=== PATIENT | female | born 1950 | race Caucasian/White ===

== ENCOUNTER → 2018-02-02 | Day surgery (SDC) | payer MEDICARE, BC ==
[~2018-02-02] VITALS: Ht 157.5 cm; Wt 154.6 kg
[~2018-02-02] MED LIST: ASPI-630 PO; BUPIVAC MPF-EPI 0.5%-1:200000 30 ML VIAL. INJ ONE; BUPIVACAINE MPF 0.25% 30 ML VIAL. INJ ONE; CALC-112 PO; CHOL2000 PO; CRESTOR40 MG PO; DESFLURANE 31 TO 60 MINUTES IH ONE; DEXAMETHASONE SOD PHOS 20 MG/5 ML VIAL. ONE; GLYCOPYRROLATE 1 MG/5 ML VIAL. ONE; HYDROcodone/APAP 5/325MG 1 TAB TABLET ONE; HYDROmorphone 2 MG/ML VIAL IV PRN; IOHEXOL 300 MG/ML 100ML VIAL. ONE; IV RINGERS,LACTATED 1000ML 1,000 ML IV SCH; LEVO200T5 PO; LEVO75TA5 PO; LIDOCAINE 1% PF 2 ML VIAL. ID PRN; MEMA1CAP3 PO; MORPHINE SULFATE 2 MG/ML VIAL. ONE; MULT-650 PO; NEOSTIGMINE METHYLSULFATE 5 MG/5 ML SYRINGE. ONE; ONDANSETRON PF 4 MG/2 ML VIAL. IV PRN; ONDANSETRON PF 4 MG/2 ML VIAL. ONE; OXYB5TAB7 PO; OXYC-323 PO; PHENYLEPHRINE in 0.9% NACL PF 1 MG/10 ML SYRINGE. IV ONE; PROCHLORPERAZINE 10 MG/2 ML VIAL. IV PRN; PROPOFOL 20 ML IV ONE; ROCURONIUM 50 MG/5 ML VIAL. ONE; SIMV40TA3 PO; SURGICEL HEMOSTAT 4X8 EACH. TP ONE; fentaNYL PF VIAL 100 MCG/2 ML VIAL IV PRN; fentaNYL PF VIAL 100 MCG/2 ML VIAL ONE; oxyCODONE/APAP 5/325 1 TAB TABLET PO PRN
--- NOTE | 2018-02-02 10:40 | PDOC4 ---
Operative Note Operative Note Date: 02/02/2018 Preoperative diagnosis biliary dyskinesia Postoperative diagnosis: Same Procedure: Laparoscopic cholecystectomy Surgeon: Arnaud Specimen: Gallbladder Dictation: Patient is a 67-year-old female is had right upper quadrant abdominal pain nausea especially postprandial and a HIDA scan which showed ejection fraction of only 6%. The procedure of laparoscopic cholecystectomy was explained to the patient detail was benefits were also discussed including bleeding infection injury to intra-abdominal contents possibly necessitating further or open operations. Patient seemed understanding gave both verbal and written consent had procedure performed. Patient was taken to the operating room placed the supine position general anesthesia was initiated once patient was asleep and intubated her abdomen was prepped and draped usual sterile fashion using ChloraPrep. An area just below her umbilicus was injected with quarter percent Marcaine with epinephrine incisions made lead blade scalpel and a varies needle was placed within the abdomen creating pneumoperitoneum once this complete a 11 mm port was placed and a 5 mm camera was placed within the abdomen which was inspected no other at maladies were noted. A 5 mm port was placed in the epigastric area a second 5 mm port in the right lateral abdomen and one in the right mid abdomen the dome of the gallbladder was grasped retracted cephalad the infundibulum of the gallbladder's grasped retracted laterally exposing the triangle adherent tissues the triangle are taken down with blunt dissection exposing the cystic duct and cystic artery. Both the artery and duct were doubly clipped and transected the gallbladder was taken off the liver with hook left cautery placed in Endo Catch bag and removed from the umbilicus right upper quadrant was irrigated and suctioned dry hemostasis didn't be appropriate and the pneumoperitoneum was reduced all ports removed fascial defect at the umbilicus was closed with [id number] 0 Vicryl suture and skin was approximated all port sites 4 septic or Monocryl Mastisol Steri- Strips and Band-Aids were applied as dressings. Patient was waken next made in the operating room taken recovery in stable condition all sponge instrument needle counts listed as correct estimated blood loss 5 mL. ANDRIA ROQUE MD Feb 02, 2018 10:40
--- NOTE | 2018-02-02 10:40 | DISCH ---
DISCHARGE INSTRUCTIONS Condition on Discharge Condition on Discharge: Stable Activity After Discharge Activity Instructions for Disc: Avoid exertion Other activity instructions: no lifting more than 20 pounds for 2 weeks Diet after Discharge Diet after Discharge: Low Fat Wound Incision Care Other wound/incision instructi: May shower in 24 hours Contacting the after DC Call your doctor for: If your condition worsens Follow-Up Follow up with: Dr. Roque in 2 weeks ANDRIA ROQUE MD Feb 02, 2018 10:40
[2018-02-02] MEDS: fentaNYL PF VIAL 100 MCG/2 ML VIAL IV PRN ×2 (10:51→10:59)
[2018-02-02] MEDS: MORPHINE SULFATE 2 MG/ML VIAL. IV PRN ×2 (11:11→11:21)
[2018-02-02 12:28] VITALS: BP 155/81
--- NOTE | 2018-02-05 16:07 | PATHOLOGY ---
[facility] Accession Number: [id number] . 01 Material submitted: . GALLBLADDER . 01 Clinician provided ICD-10: K82.8 . 01 Clinical history: . Biliary dyskinesia . 02 Diagnosis: Gallbladder, laparoscopic cholecystectomy: - Chronic cholecystitis. . (JPM:farshad; 02/05/2018) MBR/02/05/2018 . 02 Comment: There are no calculi identified within the gallbladder lumen or specimen container. Sections of the gallbladder show mild chronic inflammation. There is no evidence of malignancy. . (JPM:farshad; 02/05/2018) . 02 Electronically signed: . Blair Chacon MD, Pathologist NPI- [id number] . 01 Gross description: . Received in formalin labeled "Oliva Bob, gallbladder" is a glistening, green, pink, renetta and intact gallbladder (7.0 x 3.2 x 3.0 cm). The lumen contains 5 ML's of green bile. No calculi are present. The wall averages 0.2 cm thick. The mucosa is green, slightly brown, and velvety. Bi Technical Lead sections are submitted as A1. (ROSE MARY; 02/02/2018) JBR/JBR . 02 Pathologist provided ICD-10: K81.1 . 02 CPT . 332119 Specimen Comment: A courtesy copy of this report has been sent to Specimen Comment: [phone], . Specimen Comment: Report sent to and Specimen Comment: A duplicate report has been generated due to demographic updates. Performed at: 01 [facility] [address], [place], [place] [id number] MD Konrad Griffin MD Phone: [phone] Performed at: [address] [id number] MD Blair Chacon MD Phone: [phone]
== END | disposition home or self-care (01) ==
LOC: SURG 08:06
PROVIDERS: ATTEND Surgery
DX: K81.1 Chronic cholecystitis (principal); E03.9 Hypothyroidism, unspecified; E78.5 Hyperlipidemia, unspecified; F32.9 Major depressive disorder, single episode, unspecified; Z87.442 Personal history of urinary calculi; E78.1 Pure hyperglyceridemia; Z87.440 Personal history of urinary (tract) infections; H91.90 Unspecified hearing loss, unspecified ear; Z87.891 Personal history of nicotine dependence; Z90.49 Acquired absence of other specified parts of digestive tract; Z98.890 Other specified postprocedural states; Z98.51 Tubal ligation status; Z80.1 Family history of malignant neoplasm of trachea, bronchus and lung; Z80.3 Family history of malignant neoplasm of breast; Z79.899 Other long term (current) drug therapy
CPT/HCPCS: 47562; 88304; A7015; J0690; J1100; J2270; J2370; J2405; J2704; J2710; J3010; J3490; J7030; Q9967

== ENCOUNTER → 2018-10-18 | Day surgery (SDC) | payer MEDICARE, BC ==
[~2018-10-18] MED LIST changes: -BUPIVAC MPF-EPI 0.5%-1:200000 30 ML VIAL. INJ ONE; -BUPIVACAINE MPF 0.25% 30 ML VIAL. INJ ONE; -DESFLURANE 31 TO 60 MINUTES IH ONE; -DEXAMETHASONE SOD PHOS 20 MG/5 ML VIAL. ONE; -GLYCOPYRROLATE 1 MG/5 ML VIAL. ONE; -HYDROcodone/APAP 5/325MG 1 TAB TABLET ONE; -HYDROmorphone 2 MG/ML VIAL IV PRN; -IOHEXOL 300 MG/ML 100ML VIAL. ONE; -LIDOCAINE 1% PF 2 ML VIAL. ID PRN; +LIDOCAINE 2% PF 5 ML VIAL. ONE; -MORPHINE SULFATE 2 MG/ML VIAL. ONE; -NEOSTIGMINE METHYLSULFATE 5 MG/5 ML SYRINGE. ONE; -ONDANSETRON PF 4 MG/2 ML VIAL. IV PRN; -ONDANSETRON PF 4 MG/2 ML VIAL. ONE; -OXYC-323 PO; +OXYC1TAB15 PO; -PHENYLEPHRINE in 0.9% NACL PF 1 MG/10 ML SYRINGE. IV ONE; -PROCHLORPERAZINE 10 MG/2 ML VIAL. IV PRN; -PROPOFOL 20 ML IV ONE; +PROPOFOL 40 ML IV ONE; -ROCURONIUM 50 MG/5 ML VIAL. ONE; -SURGICEL HEMOSTAT 4X8 EACH. TP ONE; -fentaNYL PF VIAL 100 MCG/2 ML VIAL IV PRN; -fentaNYL PF VIAL 100 MCG/2 ML VIAL ONE; -oxyCODONE/APAP 5/325 1 TAB TABLET PO PRN
[2018-10-18 13:38] VITALS: BP 132/81
== END ==
LOC: SURG 11:11
PROVIDERS: ATTEND Internal Medicine Gastroenterology
DX: Z12.11 Encounter for screening for malignant neoplasm of colon (principal); K57.30 Diverticulosis of large intestine without perforation or abscess without bleeding; K64.0 First degree hemorrhoids; Z86.010 Personal history of colon polyps; Z79.82 Long term (current) use of aspirin
CPT/HCPCS: G0105; J2001; J2704; 45378

== ENCOUNTER 2019-04-22 15:28 | Inpatient (IN) | payer MEDICARE, BC ==
[2019-04-22] VITALS (8 sets, daily range): BP systolic 120–161; BP diastolic 71–95
[~2019-04-22] VITALS: Ht 167.6 cm; Wt 66.3 kg
[~2019-04-22 15:28] MED LIST changes: -IV RINGERS,LACTATED 1000ML 1,000 ML IV SCH; -LIDOCAINE 2% PF 5 ML VIAL. ONE; +OXYB5TAB10 PO; -OXYB5TAB7 PO; -PROPOFOL 40 ML IV ONE; +SIMV40TA18 PO; -SIMV40TA3 PO
--- NOTE | 2019-04-22 16:09 | PDOC ---
Provider Note Provider Note Patient seen and examined reported fall 2 days ago awake, alert, confused conversation, clear speech, follows simple commands, MEJIA CT with left subacute cerebral convexity SDH monitor in ICU with neuro checks repeat CT in AM MARY KATE DEGROOT MD Apr 22, 2019 16:08
[2019-04-22] MEDS ORDERED: DIVA-53 PO (16:49)
[2019-04-22] MEDS ORDERED: ASPI-630 PO (16:49)
[2019-04-22] MEDS ORDERED: OLAN5TAB9 PO (16:49)
[2019-04-22] MEDS ORDERED: MIRT7.5T8 PO (16:49)
[2019-04-22] MEDS ORDERED: LEVO75TA5 PO (16:49)
[2019-04-22] MEDS ORDERED: ROSU10TA26 PO (16:49)
[2019-04-22] MEDS ORDERED: MULT-245 PO (16:49)
[2019-04-22] MEDS ORDERED: CHOL200027 PO (16:49)
[2019-04-22] MEDS: DIVALPROEX SPRINKLES 125 MG CAPSULE. PO SCH (17:58)
[2019-04-22] MEDS: IV NORMAL SALINE 1000ML BAG 1,000 ML IV SCH (18:45)
[2019-04-22] MEDS: OLANZapine 5 MG TABLET PO PRN (19:58)
[2019-04-22] MEDS: MIRTAZAPINE 7.5 MG TABLET. PO SCH (19:58)
[2019-04-22] MEDS: ATORVASTATIN CALCIUM 40 MG TABLET. PO SCH (19:58)
--- NOTE | 2019-04-22 21:53 | PDOC1 ---
History and Physical Date of Admission Date of Admission DATE: 04/22/19 TIME: 21:46 Identification/Chief Complaint Chief Complaint confusion, lethargy Source Source: Chart review, Patient History of Present Illness History of Present Illness Ms. Bob, was recently DC from [employer] at [facility] < 2 weeks ago, She was brought by her to the Emergency Room for lethargy and weakness and change in behavior he thought consistent with a UTI she has had falls at the house. 2 days ago, she sleeps on the cough and he was awakened to a very large noise of her falling to the floor. she was stunned but did not lose consciousness, but her behavior has worsened in the past 24 hours. She has history of dementia and has been increasingly combative and harder to control. no oriented,but does speak in full sentences SOCIAL HISTORY: She is , has 2 daughters. She quit smoking about 10 years ago. She drinks a glass of wine once a week. 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 Past Surgical History Past Surgical History: Appendectomy Family History Family History ALLERGIES: She is allergic to SULFA DRUGS. She is the only child, has no brothers or sisters. Both parents are , unknownm Social History Smoke: No ALCOHOL: none Drugs: None Current Medications Current Medications Current Medications Aspirin (Children'S Aspirin) 81 mg DAILY PO ; Start 04/23/19 at 09:00 Divalproex Sodium (Depakote Sprinkles) 125 mg BIDWMEALS PO Last administered on 04/22/19at 17:58; Start 04/22/19 at 17:30 Levothyroxine Sodium (Synthroid) 75 mcg DAILY PO ; Start 04/23/19 at 09:00 Mirtazapine (Remeron) 7.5 mg QHS PO Last administered on 04/22/19at 19:58; Start 04/22/19 at 21:00 Olanzapine (ZyPREXA) 5 mg PRN Q2HR PRN PO ANXIETY / AGITATION Last administered on 04/22/19at 19:58; Start 04/22/19 at 17:15 Calcium/Vitamin D (Oscal D 500mg/ 200uts) 1 tab DAILY PO ; Start 04/23/19 at 09:00 Vitamin D (Vitamin D3) 1,000 unit DAILY PO ; Start 04/23/19 at 09:00 Multivitamins (Thera M Plus) 1 tab DAILY PO ; Start 04/23/19 at 09:00 Atorvastatin Calcium (Lipitor) 40 mg QHS PO Last administered on 04/22/19at 19:58; Start 04/22/19 at 21:00 Sodium Chloride 1,000 ml @ 50 mls/hr Q20H IV Last administered on 04/22/19at 18:45; Start 04/22/19 at 19:00 Active Scripts Active Reported Mirtazapine 7.5 Mg Tablet 1 Tab PO QHS 30 Days Divalproex Sodium 500 Mg Tablet.dr 125 Mg PO BIDWMEALS Olanzapine 5 Mg Tablet 1 Tab PO PRN Q2HR PRN Levothyroxine Sodium 75 Mcg Tablet 1 Tab PO DAILY Aspirin 81 Mg Tab.chew 1 Tab PO DAILY Rosuvastatin Calcium 10 Mg Tablet 10 Mg PO HS Vitamin D3 (Cholecalciferol (Vitamin D3)) 2,000 Unit Tablet 1 Tab PO DAILY 30 Days Citracal + D Er Tablet (Calcium Carb & Cit/Vitamin D3) 1 Each Tablet.er 1 Each PO DAILY Centrum Silver Women Tablet (Multivits-Min/Iron/FA/Lutein) 1 Each Tablet 1 Each PO DAILY Allergies Allergies: Coded Allergies: No Known Drug Allergies (Unverified , 10/18/18) ROS Review of System unable due to dementia and new confusion Physical Exam General: Cooperative, mild distress, Other HEENT: Atraumatic, PERRLA, EOMI Lungs: Clear to auscultation Heart: S1S2 Abdomen: Normal bowel sounds, Soft Rectal Exam: not examined Extremities: No clubbing, No cyanosis Skin: No breakdown Neuro: Normal speech, Sensation intact, Other Psych/Mental Status: Other (confused, not oriented) Vitals Vitals Vital Signs Date Time Temp Pulse Resp B/P (MAP) Pulse Ox O2 Delivery O2 Flow Rate FiO2 04/22/19 20:09 97.6 65 19 158/95 (116) 96 Room Air 97.6 VTE Prophylaxis Ordered VTE Prophylaxis Devices: Yes VTE Pharmacological Prophylaxi: Contraindicated Assessment/Plan Assessment/Plan acute encephalopathy on chronic dementia CT scan head consistent with SDH, but may be old finding, Neurosurg consulted, will follow, admitted to ICU, neuro check dementia with marked behavioral disorder, req 2 week hospital stay recently/ cont home meds, DARLIN HERNANDEZ MD Apr 22, 2019 21:53
[2019-04-23] VITALS (23 sets, daily range): BP systolic 101–147; BP diastolic 60–105
[2019-04-23 06:42] LABS: BASO # 0.1 x10^3/uL (0.0-0.2); BASO % 1 % (0-3); EOS # 0.1 x10^3/uL (0.0-0.7); EOS % 2 % (0-3); HEMATOCRIT 43.1 % (36.0-47.0); HEMOGLOBIN 14.4 g/dL (12.0-15.5); LYMPH # 2.6 x10^3/uL (1.0-4.8); LYMPH % 32 % (24-48); MEAN CORPUSCULAR HEMOGLOBIN 30 pg (25-35); MEAN CORPUSCULAR HGB CONC 33 g/dL (31-37); MEAN CORPUSCULAR VOLUME 89 fL (79-100); MONO # 0.8 x10^3/uL (0.0-1.1); MONO % 10 % (0-9); NEUT # 4.3 x10^3/uL (1.8-7.7); NEUT % 55 % (31-73); PLATELET COUNT 226 x10^3/uL (140-400); RED BLOOD COUNT 4.85 x10^6/uL (3.50-5.40); RED CELL DISTRIBUTION WIDTH 14.3 % (11.5-14.5); WHITE BLOOD COUNT 7.9 x10^3/uL (4.0-11.0)
[2019-04-23 06:59] LABS: GFR 83.5
[2019-04-23] MEDS ORDERED: LEVOTHYROXINE 75 MCG TABLET ONE (07:16)
[2019-04-23] MEDS: LEVOTHYROXINE 75 MCG TABLET PO SCH (07:19)
[2019-04-23 07:35] LABS: CALCIUM 9.3 mg/dL (8.5-10.1); CREATININE 0.7 mg/dL (0.6-1.0); POTASSIUM 3.8 mmol/L (3.5-5.1)
[2019-04-23] MEDS ORDERED: ASPIRIN CHEWABLE 81 MG TABLET. PO SCH (09:00)
--- NOTE | 2019-04-23 09:12 | RAD ---
CT HEAD WO CONTRAST History: Follow-up subdural hematomas. Comparison: April 22, 2019. Technique: Noncontrast CT imaging was performed of the head. Coronal reconstruction was performed. Exposure: One or more of the following individualized dose reduction techniques were utilized for this examination: 1. Automated exposure control 2. Adjustment of the mA and/or kV according to patient size 3. Use of iterative reconstruction technique. Findings: Evolving left superior frontal convexity subdural hematoma. Mildly increased overall size compared to prior maximal thickness 3.6 cm. Slightly increased rightward midline shift. Partial effacement of the left lateral ventricle, unchanged. No new hemorrhage. No hydrocephalus. Mild brain parenchymal volume loss. Mild foci decreased attenuation within hemispheric white matter, most often due to chronic microvascular ischemia. Imaged orbits are unremarkable. Imaged paranasal sinuses and mastoid air cells are clear. TMJ arthropathy. Impression: 1. Evolving mildly increased left frontal convexity subdural hematoma with adjacent mass effect and rightward midline shift. Electronically signed by: Serafin Hernandez DO (04/23/2019 9:09 AM) [id number]
--- NOTE | 2019-04-23 09:13 | PDOC ---
PROGRESS NOTES Chief Complaint Chief Complaint Acute encephalopathy on chronic dementia CT scan head consistent with SDH on left 2.4cm with 4mm right midline shift, but may be old finding, Neurosurg consulted, will follow, admitted to ICU, neuro check Dementia with marked behavioral disorder - Cymbalta 60 mg at bedtime, Depakote Sprinkle 125 mg b.i.d., Remeron 7.5 mg QHS, Aricept 10 mg at bedtime, Namenda 10 mg at bedtime - would hold aricept given hemorrhage and falls UTI, treated, on doxycycline until 04/15/2019 History of Present Illness History of Present Illness Ms. Bob, was recently DC from [employer] at [place] < 2 weeks ago, She was brought by her to the Emergency Room for lethargy and weakness and change in behavior he thought consistent with a UTI. She has had falls at the house. 2 days ago, she sleeps on the cough and he was awakened to a very large noise of her falling to the floor. Behavior had worsened in the past 24 hours prior to admission on 04/22/19. CT head in ED showed 2.4cm SDH with 4mm right midline shift. Admitted to ICU for further care. She has history of dementia and has been increasingly combative and harder to control. Not oriented,but does speak in full sentences. She has no complaints. Plan: Repeat CT head Downgrade Vitals Vitals Vital Signs Date Time Temp Pulse Resp B/P (MAP) Pulse Ox O2 Delivery O2 Flow Rate FiO2 04/23/19 07:23 Room Air 04/23/19 07:23 98.2 70 17 147/60 (89) 98 98.2 Physical Exam General: Cooperative, mild distress, Other (Oriented to herself. Insight, judgment, recent and remote memory, attention, concentration, fund of knowledge poor, consistent with her diagnosis.) Abdomen: Normal bowel sounds, Soft Extremities: No clubbing, No cyanosis Skin: No breakdown Labs LABS Laboratory Tests Test 04/23/19 06:30 White Blood Count 7.9 x10^3/uL (4.0-11.0) Red Blood Count 4.85 x10^6/uL (3.50-5.40) Hemoglobin 14.4 g/dL (12.0-15.5) Hematocrit 43.1 % (36.0-47.0) Mean Corpuscular Volume 89 fL (79-100) Mean Corpuscular Hemoglobin 30 pg (25-35) Mean Corpuscular Hemoglobin Concent 33 g/dL (31-37) Red Cell Distribution Width 14.3 % (11.5-14.5) Platelet Count 226 x10^3/uL (140-400) Neutrophils (%) (Auto) 55 % (31-73) Lymphocytes (%) (Auto) 32 % (24-48) Monocytes (%) (Auto) 10 % (0-9) Eosinophils (%) (Auto) 2 % (0-3) Basophils (%) (Auto) 1 % (0-3) Neutrophils # (Auto) 4.3 x10^3/uL (1.8-7.7) Lymphocytes # (Auto) 2.6 x10^3/uL (1.0-4.8) Monocytes # (Auto) 0.8 x10^3/uL (0.0-1.1) Eosinophils # (Auto) 0.1 x10^3/uL (0.0-0.7) Basophils # (Auto) 0.1 x10^3/uL (0.0-0.2) Sodium Level 144 mmol/L (136-145) Potassium Level 3.8 mmol/L (3.5-5.1) Chloride Level 109 mmol/L (98-107) Carbon Dioxide Level 22 mmol/L (21-32) Anion Gap 13 (6-14) Blood Urea Nitrogen 4 mg/dL (7-20) Creatinine 0.7 mg/dL (0.6-1.0) Estimated GFR (Cockcroft-Gault) 83.5 Glucose Level 99 mg/dL (70-99) Calcium Level 9.3 mg/dL (8.5-10.1) Comment Review of Relevant I have reviewed the following items cyndi (where applicable) has been applied. Labs Laboratory Tests Test 04/23/19 06:30 White Blood Count 7.9 x10^3/uL (4.0-11.0) Red Blood Count 4.85 x10^6/uL (3.50-5.40) Hemoglobin 14.4 g/dL (12.0-15.5) Hematocrit 43.1 % (36.0-47.0) Mean Corpuscular Volume 89 fL (79-100) Mean Corpuscular Hemoglobin 30 pg (25-35) Mean Corpuscular Hemoglobin Concent 33 g/dL (31-37) Red Cell Distribution Width 14.3 % (11.5-14.5) Platelet Count 226 x10^3/uL (140-400) Neutrophils (%) (Auto) 55 % (31-73) Lymphocytes (%) (Auto) 32 % (24-48) Monocytes (%) (Auto) 10 % (0-9) Eosinophils (%) (Auto) 2 % (0-3) Basophils (%) (Auto) 1 % (0-3) Neutrophils # (Auto) 4.3 x10^3/uL (1.8-7.7) Lymphocytes # (Auto) 2.6 x10^3/uL (1.0-4.8) Monocytes # (Auto) 0.8 x10^3/uL (0.0-1.1) Eosinophils # (Auto) 0.1 x10^3/uL (0.0-0.7) Basophils # (Auto) 0.1 x10^3/uL (0.0-0.2) Sodium Level 144 mmol/L (136-145) Potassium Level 3.8 mmol/L (3.5-5.1) Chloride Level 109 mmol/L (98-107) Carbon Dioxide Level 22 mmol/L (21-32) Anion Gap 13 (6-14) Blood Urea Nitrogen 4 mg/dL (7-20) Creatinine 0.7 mg/dL (0.6-1.0) Estimated GFR (Cockcroft-Gault) 83.5 Glucose Level 99 mg/dL (70-99) Calcium Level 9.3 mg/dL (8.5-10.1) Laboratory Tests Test 04/23/19 06:30 White Blood Count 7.9 x10^3/uL (4.0-11.0) Red Blood Count 4.85 x10^6/uL (3.50-5.40) Hemoglobin 14.4 g/dL (12.0-15.5) Hematocrit 43.1 % (36.0-47.0) Mean Corpuscular Volume 89 fL (79-100) Mean Corpuscular Hemoglobin 30 pg (25-35) Mean Corpuscular Hemoglobin Concent 33 g/dL (31-37) Red Cell Distribution Width 14.3 % (11.5-14.5) Platelet Count 226 x10^3/uL (140-400) Neutrophils (%) (Auto) 55 % (31-73) Lymphocytes (%) (Auto) 32 % (24-48) Monocytes (%) (Auto) 10 % (0-9) Eosinophils (%) (Auto) 2 % (0-3) Basophils (%) (Auto) 1 % (0-3) Neutrophils # (Auto) 4.3 x10^3/uL (1.8-7.7) Lymphocytes # (Auto) 2.6 x10^3/uL (1.0-4.8) Monocytes # (Auto) 0.8 x10^3/uL (0.0-1.1) Eosinophils # (Auto) 0.1 x10^3/uL (0.0-0.7) Basophils # (Auto) 0.1 x10^3/uL (0.0-0.2) Sodium Level 144 mmol/L (136-145) Potassium Level 3.8 mmol/L (3.5-5.1) Chloride Level 109 mmol/L (98-107) Carbon Dioxide Level 22 mmol/L (21-32) Anion Gap 13 (6-14) Blood Urea Nitrogen 4 mg/dL (7-20) Creatinine 0.7 mg/dL (0.6-1.0) Estimated GFR (Cockcroft-Gault) 83.5 Glucose Level 99 mg/dL (70-99) Calcium Level 9.3 mg/dL (8.5-10.1) Medications Current Medications Aspirin (Children'S Aspirin) 81 mg DAILY PO ; Start 04/23/19 at 09:00 Divalproex Sodium (Depakote Sprinkles) 125 mg BIDWMEALS PO Last administered on 04/22/19at 17:58; Start 04/22/19 at 17:30 Levothyroxine Sodium (Synthroid) 75 mcg DAILY PO Last administered on 04/23/19at 07:19; Start 04/23/19 at 09:00 Mirtazapine (Remeron) 7.5 mg QHS PO Last administered on 04/22/19at 19:58; Start 04/22/19 at 21:00 Olanzapine (ZyPREXA) 5 mg PRN Q2HR PRN PO ANXIETY / AGITATION Last administered on 04/22/19at 19:58; Start 04/22/19 at 17:15 Calcium/Vitamin D (Oscal D 500mg/ 200uts) 1 tab DAILY PO ; Start 04/23/19 at 09:00 Vitamin D (Vitamin D3) 1,000 unit DAILY PO ; Start 04/23/19 at 09:00 Multivitamins (Thera M Plus) 1 tab DAILY PO ; Start 04/23/19 at 09:00 Atorvastatin Calcium (Lipitor) 40 mg QHS PO Last administered on 04/22/19at 19:58; Start 04/22/19 at 21:00 Sodium Chloride 1,000 ml @ 50 mls/hr Q20H IV Last administered on 04/22/19at 18:45; Start 04/22/19 at 19:00 Vitamin B Complex (Folbic Tablet) 1 tab DAILY PO ; Start 04/23/19 at 09:00 Levothyroxine Sodium (Synthroid) 75 mcg STK-MED ONCE .ROUTE ; Start 04/23/19 at 07:16; Stop 04/23/19 at 07:17; Status DC Active Scripts Active Reported Mirtazapine 7.5 Mg Tablet 1 Tab PO QHS 30 Days Divalproex Sodium 500 Mg Tablet.dr 125 Mg PO BIDWMEALS Olanzapine 5 Mg Tablet 1 Tab PO PRN Q2HR PRN Levothyroxine Sodium 75 Mcg Tablet 1 Tab PO DAILY Aspirin 81 Mg Tab.chew 1 Tab PO DAILY Rosuvastatin Calcium 10 Mg Tablet 10 Mg PO HS Vitamin D3 (Cholecalciferol (Vitamin D3)) 2,000 Unit Tablet 1 Tab PO DAILY 30 Days Citracal + D Er Tablet (Calcium Carb & Cit/Vitamin D3) 1 Each Tablet.er 1 Each PO DAILY Centrum Silver Women Tablet (Multivits-Min/Iron/FA/Lutein) 1 Each Tablet 1 Each PO DAILY Vitals/I & O Vital Sign - Last 24 Hours 04/22/19 04/22/19 04/22/19 04/22/19 15:56 16:11 17:20 18:06 Temp 98.2 98.3 98.3 98.2 98.3 98.3 Pulse 82 76 63 Resp 20 18 17 B/P (MAP) 140/91 (107) 140/73 (95) 138/78 (98) Pulse Ox 92 95 96 O2 Delivery Room Air Room Air Room Air Nasal Cannula 04/22/19 04/22/19 04/22/19 04/22/19 19:00 19:43 20:09 21:00 Temp 97.4 97.6 97.6 97.4 97.6 97.6 Pulse 68 65 72 Resp 18 B/P (MAP) 155/87 (109) 158/95 (116) 161/95 (117) Pulse Ox 95 96 96 O2 Delivery Room Air Room Air Room Air Room Air 04/22/19 04/22/19 04/22/19 04/23/19 22:16 23:10 23:53 01:10 Temp 97.0 97.4 97.0 97.0 97.4 97.0 Pulse 104 72 76 Resp 18 B/P (MAP) 143/94 (110) 120/71 (87) 126/67 (86) Pulse Ox 93 94 94 O2 Delivery Room Air Room Air Room Air Room Air 04/23/19 04/23/19 04/23/19 04/23/19 02:00 03:00 03:49 04:12 Temp 96.9 97.0 97.3 96.9 97.0 97.3 Pulse 70 69 98 Resp 22 B/P (MAP) 112/78 (89) 124/76 (92) 141/75 (97) Pulse Ox 95 96 96 O2 Delivery Room Air Room Air Room Air Room Air 04/23/19 04/23/19 04/23/19 04/23/19 05:13 06:08 07:23 07:23 Temp 97.5 97.0 98.2 97.5 97.0 98.2 Pulse 69 62 70 Resp 17 B/P (MAP) 105/71 (82) 145/70 (95) 147/60 (89) Pulse Ox 96 96 98 O2 Delivery Room Air Room Air Room Air Room Air Intake and Output 04/22/19 04/22/19 04/23/19 14:59 22:59 06:59 Intake Total 480 ml 600 ml Output Total 0 ml Balance 480 ml 600 ml LLOYD ANDERSON MD Apr 23, 2019 09:13
[2019-04-23] MEDS: VITAMIN B12,B9,B6 COMPLEX 1 TABLET. PO SCH (09:25)
[2019-04-23] MEDS: CALCIUM CARB/VIT D3 500/200 TABLET. PO SCH (09:25)
[2019-04-23] MEDS: CHOLECALCIFEROL (VITAMIN D3) 1,000 UNIT TABLET PO SCH (09:26)
[2019-04-23] MEDS: DIVALPROEX SPRINKLES 125 MG CAPSULE. PO SCH ×2 (09:26→16:32)
[2019-04-23] MEDS: MULTIVITAMIN with MINERAL TABLET. PO SCH (09:26)
--- NOTE | 2019-04-23 10:17 | NUR ---
SS following for discharge planning. SS reviewed pt chart. Pt is from home with spouse and is currently on room air. SS will continue to follow for discharge planning.
--- NOTE | 2019-04-23 13:21 | PDOC ---
PROGRESS NOTES Subjective Subjective Resting in bed family at bedside Objective Objective Vital Signs Date Time Temp Pulse Resp B/P (MAP) Pulse Ox O2 Delivery O2 Flow Rate FiO2 04/23/19 13:07 72 20 134/99 (111) 96 Room Air 04/23/19 11:20 98.1 98.1 Intake and Output 04/23/19 07:00 Intake Total 1080 ml Output Total 0 ml Balance 1080 ml Intake Oral 1080 ml Output Urine Total 0 ml # Voids 6 # Bowel Movements 1 Physical Exam General: Alert, No acute distress, Other (confused) Neuro: Other (MEJIA, follows some simple commands) Plan Plan of Care CT head reviewed with Dr. Gaspar- mildly increased left frontal convexity subdural hematoma with adjacent mass effect and rightward midline shift plan for evacuation tomorrow, d/w family, all questions answered Comment Review of Relevant I have reviewed the following items cyndi (where applicable) has been applied. Labs Laboratory Tests Test 04/23/19 06:30 White Blood Count 7.9 x10^3/uL (4.0-11.0) Red Blood Count 4.85 x10^6/uL (3.50-5.40) Hemoglobin 14.4 g/dL (12.0-15.5) Hematocrit 43.1 % (36.0-47.0) Mean Corpuscular Volume 89 fL (79-100) Mean Corpuscular Hemoglobin 30 pg (25-35) Mean Corpuscular Hemoglobin Concent 33 g/dL (31-37) Red Cell Distribution Width 14.3 % (11.5-14.5) Platelet Count 226 x10^3/uL (140-400) Neutrophils (%) (Auto) 55 % (31-73) Lymphocytes (%) (Auto) 32 % (24-48) Monocytes (%) (Auto) 10 % (0-9) Eosinophils (%) (Auto) 2 % (0-3) Basophils (%) (Auto) 1 % (0-3) Neutrophils # (Auto) 4.3 x10^3/uL (1.8-7.7) Lymphocytes # (Auto) 2.6 x10^3/uL (1.0-4.8) Monocytes # (Auto) 0.8 x10^3/uL (0.0-1.1) Eosinophils # (Auto) 0.1 x10^3/uL (0.0-0.7) Basophils # (Auto) 0.1 x10^3/uL (0.0-0.2) Sodium Level 144 mmol/L (136-145) Potassium Level 3.8 mmol/L (3.5-5.1) Chloride Level 109 mmol/L (98-107) Carbon Dioxide Level 22 mmol/L (21-32) Anion Gap 13 (6-14) Blood Urea Nitrogen 4 mg/dL (7-20) Creatinine 0.7 mg/dL (0.6-1.0) Estimated GFR (Cockcroft-Gault) 83.5 Glucose Level 99 mg/dL (70-99) Calcium Level 9.3 mg/dL (8.5-10.1) Laboratory Tests Test 04/23/19 06:30 White Blood Count 7.9 x10^3/uL (4.0-11.0) Red Blood Count 4.85 x10^6/uL (3.50-5.40) Hemoglobin 14.4 g/dL (12.0-15.5) Hematocrit 43.1 % (36.0-47.0) Mean Corpuscular Volume 89 fL (79-100) Mean Corpuscular Hemoglobin 30 pg (25-35) Mean Corpuscular Hemoglobin Concent 33 g/dL (31-37) Red Cell Distribution Width 14.3 % (11.5-14.5) Platelet Count 226 x10^3/uL (140-400) Neutrophils (%) (Auto) 55 % (31-73) Lymphocytes (%) (Auto) 32 % (24-48) Monocytes (%) (Auto) 10 % (0-9) Eosinophils (%) (Auto) 2 % (0-3) Basophils (%) (Auto) 1 % (0-3) Neutrophils # (Auto) 4.3 x10^3/uL (1.8-7.7) Lymphocytes # (Auto) 2.6 x10^3/uL (1.0-4.8) Monocytes # (Auto) 0.8 x10^3/uL (0.0-1.1) Eosinophils # (Auto) 0.1 x10^3/uL (0.0-0.7) Basophils # (Auto) 0.1 x10^3/uL (0.0-0.2) Sodium Level 144 mmol/L (136-145) Potassium Level 3.8 mmol/L (3.5-5.1) Chloride Level 109 mmol/L (98-107) Carbon Dioxide Level 22 mmol/L (21-32) Anion Gap 13 (6-14) Blood Urea Nitrogen 4 mg/dL (7-20) Creatinine 0.7 mg/dL (0.6-1.0) Estimated GFR (Cockcroft-Gault) 83.5 Glucose Level 99 mg/dL (70-99) Calcium Level 9.3 mg/dL (8.5-10.1) Medications Current Medications Aspirin (Children'S Aspirin) 81 mg DAILY PO Last administered on 04/23/19 09:25; Start 04/23/19 at 09:00 Divalproex Sodium (Depakote Sprinkles) 125 mg BIDWMEALS PO Last administered on 04/23/19 09:26; Start 04/22/19 at 17:30 Levothyroxine Sodium (Synthroid) 75 mcg DAILY PO Last administered on 04/23/19 07:19; Start 04/23/19 at 09:00 Mirtazapine (Remeron) 7.5 mg QHS PO Last administered on 04/22/19 19:58; Start 04/22/19 at 21:00 Olanzapine (ZyPREXA) 5 mg PRN Q2HR PRN PO ANXIETY / AGITATION Last administered on 04/22/19 19:58; Start 04/22/19 at 17:15 Calcium/Vitamin D (Oscal D 500mg/ 200uts) 1 tab DAILY PO Last administered on 04/23/19 09:25; Start 04/23/19 at 09:00 Vitamin D (Vitamin D3) 1,000 unit DAILY PO Last administered on 04/23/19 09:26; Start 04/23/19 at 09:00 Multivitamins (Thera M Plus) 1 tab DAILY PO Last administered on 04/23/19 09:26; Start 04/23/19 at 09:00 Atorvastatin Calcium (Lipitor) 40 mg QHS PO Last administered on 04/22/19 19:58; Start 04/22/19 at 21:00 Sodium Chloride 1,000 ml @ 50 mls/hr Q20H IV Last administered on 12/9/19at 18:45; Start 04/22/19 at 19:00 Vitamin B Complex (Folbic Tablet) 1 tab DAILY PO Last administered on 04/23/19at 09:25; Start 04/23/19 at 09:00 Levothyroxine Sodium (Synthroid) 75 mcg STK-MED ONCE .ROUTE ; Start 04/23/19 at 07:16; Stop 04/23/19 at 07:17; Status DC Active Scripts Active Reported Mirtazapine 7.5 Mg Tablet 1 Tab PO QHS 30 Days Divalproex Sodium 500 Mg Tablet.dr 125 Mg PO BIDWMEALS Olanzapine 5 Mg Tablet 1 Tab PO PRN Q2HR PRN Levothyroxine Sodium 75 Mcg Tablet 1 Tab PO DAILY Aspirin 81 Mg Tab.chew 1 Tab PO DAILY Rosuvastatin Calcium 10 Mg Tablet 10 Mg PO HS Vitamin D3 (Cholecalciferol (Vitamin D3)) 2,000 Unit Tablet 1 Tab PO DAILY 30 Days Citracal + D Er Tablet (Calcium Carb & Cit/Vitamin D3) 1 Each Tablet.er 1 Each PO DAILY Centrum Silver Women Tablet (Multivits-Min/Iron/FA/Lutein) 1 Each Tablet 1 Each PO DAILY Vitals/I & O Vital Sign - Last 24 Hours 04/22/19 04/22/19 04/22/19 04/22/19 15:56 16:11 17:20 18:06 Temp 98.2 98.3 98.3 98.2 98.3 98.3 Pulse 82 76 63 Resp 20 18 17 B/P (MAP) 140/91 (107) 140/73 (95) 138/78 (98) Pulse Ox 92 95 96 O2 Delivery Room Air Room Air Room Air Nasal Cannula 04/22/19 04/22/19 04/22/19 04/22/19 19:00 19:43 20:09 21:00 Temp 97.4 97.6 97.6 97.4 97.6 97.6 Pulse 68 65 72 Resp 19 19 18 B/P (MAP) 155/87 (109) 158/95 (116) 161/95 (117) Pulse Ox 95 96 96 O2 Delivery Room Air Room Air Room Air Room Air 04/22/19 04/22/19 04/22/19 04/23/19 22:16 23:10 23:53 01:10 Temp 97.0 97.4 97.0 97.0 97.4 97.0 Pulse 104 72 76 Resp 19 19 18 B/P (MAP) 143/94 (110) 120/71 (87) 126/67 (86) Pulse Ox 93 94 94 O2 Delivery Room Air Room Air Room Air Room Air 04/23/19 04/23/19 04/23/19 04/23/19 02:00 03:00 03:49 04:12 Temp 96.9 97.0 97.3 96.9 97.0 97.3 Pulse 70 69 98 Resp 18 22 22 B/P (MAP) 112/78 (89) 124/76 (92) 141/75 (97) Pulse Ox 95 96 96 O2 Delivery Room Air Room Air Room Air Room Air 04/23/19 04/23/19 04/23/19 04/23/19 05:13 06:08 07:23 07:23 Temp 97.5 97.0 98.2 97.5 97.0 98.2 Pulse 69 62 70 Resp 18 18 17 B/P (MAP) 105/71 (82) 145/70 (95) 147/60 (89) Pulse Ox 96 96 98 O2 Delivery Room Air Room Air Room Air Room Air 04/23/19 04/23/19 04/23/19 04/23/19 08:00 09:18 10:44 11:20 Temp 98.1 98.1 Pulse 82 77 76 73 Resp 18 22 20 21 B/P (MAP) 135/86 (102) 119/85 (96) 115/87 (96) 113/79 (90) Pulse Ox 95 94 93 95 O2 Delivery Room Air Room Air Room Air Room Air 04/23/19 04/23/19 04/23/19 12:12 12:14 13:07 Pulse 75 72 Resp 24 20 B/P (MAP) 105/67 (80) 134/99 (111) Pulse Ox 94 96 O2 Delivery Room Air Room Air Room Air Intake and Output 04/22/19 04/22/19 04/23/19 15:00 23:00 07:00 Intake Total 480 ml 600 ml Output Total 0 ml Balance 480 ml 600 ml Nutrition Consultation Dietary Evaluation: Recommendations by RD: Protein supplementation Comments: REC continue w/regular diet, add ground meats to ease w/chewing; honor food preferences and provide snacks as requested REC Ensure w/lunch trays Expected Outcomes/Goals: PO intake to meet >75% est needs Malnutrition Findings: Weight Status: Appropriate TASHI COUCH HOUSEFELLOW Apr 23, 2019 13:21
[2019-04-23] MEDS: OLANZapine 5 MG TABLET PO PRN ×4 (13:24→22:31)
[2019-04-23] MEDS: DEXAMETHASONE SOD PHOS 4 MG/ML VIAL IVP SCH ×3 (14:34→23:00)
[2019-04-23] MEDS: IV NORMAL SALINE 1000ML BAG 1,000 ML IV SCH (15:00)
[2019-04-23] MEDS: ATORVASTATIN CALCIUM 40 MG TABLET. PO SCH (19:31)
[2019-04-23] MEDS: MIRTAZAPINE 7.5 MG TABLET. PO SCH (20:06)
[2019-04-24] VITALS (26 sets, daily range): BP systolic 80–160; BP diastolic 47–84
[2019-04-24] MEDS: DEXAMETHASONE SOD PHOS 4 MG/ML VIAL IVP SCH ×3 (05:40→17:40)
[2019-04-24] MEDS ORDERED: BUPIVACAINE-EPI 0.5%-1:200000 MPF 30 ML VIAL. INJ ONE (06:30)
[2019-04-24] MEDS ORDERED: fentaNYL PF VIAL 100 MCG/2 ML VIAL IV PRN ×2 (07:00)
[2019-04-24] MEDS ORDERED: PROCHLORPERAZINE 10 MG/2 ML VIAL. IV PRN (07:00)
[2019-04-24] MEDS ORDERED: LIDOCAINE 1% PF 2 ML VIAL. ID PRN (07:00)
[2019-04-24] MEDS ORDERED: IV RINGERS,LACTATED 1000ML 1,000 ML IV SCH (07:00)
[2019-04-24] MEDS ORDERED: HYDROmorphone 2 MG/ML VIAL IV PRN ×2 (07:00→17:30)
[2019-04-24] MEDS ORDERED: MORPHINE SULFATE 2 MG/ML VIAL. IV PRN (07:00)
[2019-04-24] MEDS ORDERED: ONDANSETRON PF 4 MG/2 ML VIAL. IV PRN (07:00)
[2019-04-24] MEDS: DIVALPROEX SPRINKLES 125 MG CAPSULE. PO SCH ×2 (08:00→17:00)
--- NOTE | 2019-04-24 08:47 | PDOC ---
PROGRESS NOTES Chief Complaint Chief Complaint Acute encephalopathy on chronic dementia CT scan head consistent with SDH on left 2.4cm with 4mm right midline shift worsening, Neurosurg consulted, will follow, admitted to ICU, neuro checks -plans for evacuation 04/24/19 Dementia with marked behavioral disorder - Cymbalta 60 mg at bedtime, Depakote Sprinkle 125 mg b.i.d., Remeron 7.5 mg QHS, Aricept 10 mg at bedtime, Namenda 10 mg at bedtime - would hold aricept given hemorrhage and falls UTI, treated, on doxycycline until 04/15/2019 History of Present Illness History of Present Illness Ms. Bob, was recently DC from [facility] < 2 weeks ago, She was brought by her to the Emergency Room for lethargy and weakness and change in behavior he thought consistent with a UTI. She has had falls at the house. 2 days ago, she sleeps on the cough and he was awakened to a very large noise of her falling to the floor. Behavior had worsened in the past 24 hours prior to admission on 04/22/19. CT head in ED showed 2.4cm SDH with 4mm right midline shift. Admitted to ICU for further care. She has history of dementia and has been increasingly combative and harder to control. Not oriented,but does speak in full sentences. She has no complaints. Repeat CT shows evolving SDH, plans for surgical evacuation per neurosurgery. Patient has no complaints. Plan: Repeat CT head - 1. Evolving mildly increased left frontal convexity subdural hematoma with adjacent mass effect and rightward midline shift. Cont ICU Vitals Vitals Vital Signs Date Time Temp Pulse Resp B/P (MAP) Pulse Ox O2 Delivery O2 Flow Rate FiO2 04/24/19 06:23 97.0 76 19 112/64 (80) 93 Room Air 97.0 Physical Exam General: Alert, No acute distress, Other (confused) Abdomen: Normal bowel sounds, Soft Extremities: No clubbing, No cyanosis Skin: No breakdown Comment Review of Relevant I have reviewed the following items cyndi (where applicable) has been applied. Labs Laboratory Tests Test 04/23/19 06:30 White Blood Count 7.9 x10^3/uL (4.0-11.0) Red Blood Count 4.85 x10^6/uL (3.50-5.40) Hemoglobin 14.4 g/dL (12.0-15.5) Hematocrit 43.1 % (36.0-47.0) Mean Corpuscular Volume 89 fL (79-100) Mean Corpuscular Hemoglobin 30 pg (25-35) Mean Corpuscular Hemoglobin Concent 33 g/dL (31-37) Red Cell Distribution Width 14.3 % (11.5-14.5) Platelet Count 226 x10^3/uL (140-400) Neutrophils (%) (Auto) 55 % (31-73) Lymphocytes (%) (Auto) 32 % (24-48) Monocytes (%) (Auto) 10 % (0-9) Eosinophils (%) (Auto) 2 % (0-3) Basophils (%) (Auto) 1 % (0-3) Neutrophils # (Auto) 4.3 x10^3/uL (1.8-7.7) Lymphocytes # (Auto) 2.6 x10^3/uL (1.0-4.8) Monocytes # (Auto) 0.8 x10^3/uL (0.0-1.1) Eosinophils # (Auto) 0.1 x10^3/uL (0.0-0.7) Basophils # (Auto) 0.1 x10^3/uL (0.0-0.2) Sodium Level 144 mmol/L (136-145) Potassium Level 3.8 mmol/L (3.5-5.1) Chloride Level 109 mmol/L (98-107) Carbon Dioxide Level 22 mmol/L (21-32) Anion Gap 13 (6-14) Blood Urea Nitrogen 4 mg/dL (7-20) Creatinine 0.7 mg/dL (0.6-1.0) Estimated GFR (Cockcroft-Gault) 83.5 Glucose Level 99 mg/dL (70-99) Calcium Level 9.3 mg/dL (8.5-10.1) Medications Current Medications Aspirin (Children'S Aspirin) 81 mg DAILY PO Last administered on 04/23/19at 09:25; Start 04/23/19 at 09:00 Divalproex Sodium (Depakote Sprinkles) 125 mg BIDWMEALS PO Last administered on 04/23/19at 16:32; Start 04/22/19 at 17:30 Levothyroxine Sodium (Synthroid) 75 mcg DAILY PO Last administered on 04/23/19 07:19; Start 04/23/19 at 09:00 Mirtazapine (Remeron) 7.5 mg QHS PO Last administered on 04/23/19 20:06; Start 04/22/19 at 21:00 Olanzapine (ZyPREXA) 5 mg PRN Q2HR PRN PO ANXIETY / AGITATION Last administered on 04/23/19 22:31; Start 04/22/19 at 17:15 Calcium/Vitamin D (Oscal D 500mg/ 200uts) 1 tab DAILY PO Last administered on 04/23/19 09:25; Start 04/23/19 at 09:00 Vitamin D (Vitamin D3) 1,000 unit DAILY PO Last administered on 04/23/19 09:26; Start 04/23/19 at 09:00 Multivitamins (Thera M Plus) 1 tab DAILY PO Last administered on 04/23/19 09:26; Start 04/23/19 at 09:00 Atorvastatin Calcium (Lipitor) 40 mg QHS PO Last administered on 04/23/19 19:31; Start 04/22/19 at 21:00 Sodium Chloride 1,000 ml @ 50 mls/hr Q20H IV Last administered on 04/22/19 18:45; Start 04/22/19 at 19:00 Vitamin B Complex (Folbic Tablet) 1 tab DAILY PO Last administered on 04/23/19 09:25; Start 04/23/19 at 09:00 Levothyroxine Sodium (Synthroid) 75 mcg STK-MED ONCE .ROUTE ; Start 04/23/19 at 07:16; Stop 04/23/19 at 07:17; Status DC Dexamethasone Sodium Phosphate (Decadron) 2 mg Q6HRS IVP Last administered on 04/24/19at 05:40; Start 04/23/19 at 14:00 Cefazolin Sodium/ Dextrose 50 ml @ 100 mls/hr 1X PREOP IV ; Start 04/24/19 at 11:00; Stop 04/24/19 at 18:00 Bacitracin 52171 unit/Sodium Chloride 1,000 ml @ 1,000 mls/hr 1X ONCE IRR ; Start 04/24/19 at 06:00; Stop 04/24/19 at 06:59; Status DC Bupivacaine HCl/ Epinephrine Bitart (Sensorcain-Epi 0.5%-1:197174 Mpf) 30 ml 1X ONCE INJ ; Start 04/24/19 at 06:30; Stop 04/24/19 at 06:31; Status DC Ondansetron HCl (Zofran) 4 mg PRN Q6HRS PRN IV NAUSEA/VOMITING; Start 04/24/19 at 07:00; Stop 04/25/19 at 06:59 Fentanyl Citrate (Fentanyl 2ml Vial) 25 mcg PRN Q5MIN PRN IV MILD PAIN 1-3; Start 04/24/19 at 07:00; Stop 04/25/19 at 06:59 Fentanyl Citrate (Fentanyl 2ml Vial) 50 mcg PRN Q5MIN PRN IV MODERATE TO SEVERE PAIN; Start 04/24/19 at 07:00; Stop 04/25/19 at 06:59 Morphine Sulfate (Morphine Sulfate) 1 mg PRN Q10MIN PRN IV SEVERE PAIN 7-10; Start 04/24/19 at 07:00; Stop 04/25/19 at 06:59 Ringer's Solution 1,000 ml @ 30 mls/hr Q24H IV ; Start 04/24/19 at 07:00; Stop 04/24/19 at 18:59 Lidocaine HCl (Xylocaine-Mpf 1% 2ml Vial) 2 ml PRN 1X PRN ID PRIOR TO IV START; Start 04/24/19 at 07:00; Stop 04/25/19 at 06:59 Hydromorphone HCl (Dilaudid) 0.5 mg PRN Q10MIN PRN IV SEV PAIN, Second choice; Start 04/24/19 at 07:00; Stop 04/25/19 at 06:59 Prochlorperazine Edisylate (Compazine) 5 mg PACU PRN PRN IV NAUSEA, MRX1; Start 04/24/19 at 07:00; Stop 04/25/19 at 06:59 Active Scripts Active Reported Mirtazapine 7.5 Mg Tablet 1 Tab PO QHS 30 Days Divalproex Sodium 500 Mg Tablet.dr 125 Mg PO BIDWMEALS Olanzapine 5 Mg Tablet 1 Tab PO PRN Q2HR PRN Levothyroxine Sodium 75 Mcg Tablet 1 Tab PO DAILY Aspirin 81 Mg Tab.chew 1 Tab PO DAILY Rosuvastatin Calcium 10 Mg Tablet 10 Mg PO HS Vitamin D3 (Cholecalciferol (Vitamin D3)) 2,000 Unit Tablet 1 Tab PO DAILY 30 Days Citracal + D Er Tablet (Calcium Carb & Cit/Vitamin D3) 1 Each Tablet.er 1 Each PO DAILY Centrum Silver Women Tablet (Multivits-Min/Iron/FA/Lutein) 1 Each Tablet 1 Each PO DAILY Vitals/I & O Vital Sign - Last 24 Hours 04/23/19 04/23/19 04/23/19 04/23/19 09:18 10:44 11:20 12:12 Temp 98.1 98.1 Pulse 77 76 73 Resp 22 20 21 B/P (MAP) 119/85 (96) 115/87 (96) 113/79 (90) Pulse Ox 94 93 95 O2 Delivery Room Air Room Air Room Air Room Air 04/23/19 04/23/19 04/23/19 04/23/19 12:14 13:07 14:30 15:00 Pulse 75 72 73 79 Resp 24 20 17 17 B/P (MAP) 105/67 (80) 134/99 (111) 142/92 (109) 134/92 (106) Pulse Ox 94 96 94 94 O2 Delivery Room Air Room Air Room Air Room Air 04/23/19 04/23/19 04/23/19 04/23/19 16:00 16:00 17:12 18:00 Pulse 74 82 90 Resp 17 22 22 B/P (MAP) 124/88 (100) 122/105 (111) 144/97 (113) Pulse Ox 96 93 94 O2 Delivery Room Air Room Air Room Air Room Air 04/23/19 04/23/19 04/23/19 04/23/19 19:00 19:43 20:02 21:00 Temp 97.0 97.3 97.0 97.0 97.3 97.0 Pulse 100 79 82 Resp 18 20 20 B/P (MAP) 117/81 (93) 120/70 (87) 147/88 (107) Pulse Ox 95 92 98 O2 Delivery Room Air Room Air Room Air Room Air 04/23/19 04/23/19 04/23/19 04/24/19 22:05 23:03 23:31 00:02 Temp 97.6 97.0 97.1 97.6 97.0 97.1 Pulse 89 92 94 Resp 16 18 20 B/P (MAP) 140/73 (95) 101/89 (93) 119/84 (96) Pulse Ox 93 93 93 O2 Delivery Room Air Room Air Room Air Room Air 04/24/19 04/24/19 04/24/19 04/24/19 01:16 02:05 03:03 04:00 Temp 97.0 97.0 Pulse 93 64 85 Resp 18 20 18 B/P (MAP) 118/69 (85) 123/60 (81) 96/62 (73) Pulse Ox 91 99 93 O2 Delivery Room Air Room Air Room Air Room Air 04/24/19 04/24/19 04/24/19 04:05 05:00 06:23 Temp 97.0 98.0 97.0 97.0 98.0 97.0 Pulse 72 74 76 Resp 19 B/P (MAP) 160/75 (103) 116/68 (84) 112/64 (80) Pulse Ox 95 96 93 O2 Delivery Room Air Room Air Room Air Intake and Output 0 04/23/19 04/23/19 04/24/19 15:00 23:00 07:00 Intake Total 170 ml 800 ml 240 ml Balance 170 ml 800 ml 240 ml Nutrition Consultation Dietary Evaluation: Recommendations by RD: Protein supplementation Comments: REC continue w/regular diet, add ground meats to ease w/chewing; honor food preferences and provide snacks as requested REC Ensure w/lunch trays Expected Outcomes/Goals: PO intake to meet >75% est needs Malnutrition Findings: Weight Status: Appropriate LLOYD ANDERSON MD Apr 24, 2019 08:47
[2019-04-24] MEDS: LEVOTHYROXINE 75 MCG TABLET PO SCH (09:00)
[2019-04-24] MEDS: CHOLECALCIFEROL (VITAMIN D3) 1,000 UNIT TABLET PO SCH (09:00)
[2019-04-24] MEDS: CALCIUM CARB/VIT D3 500/200 TABLET. PO SCH (09:00)
[2019-04-24] MEDS: VITAMIN B12,B9,B6 COMPLEX 1 TABLET. PO SCH (09:00)
[2019-04-24] MEDS: MULTIVITAMIN with MINERAL TABLET. PO SCH (09:00)
[2019-04-24] MEDS ORDERED: SURGICEL HEMOSTAT 4X8 EACH. ONE (09:02)
[2019-04-24] MEDS ORDERED: GELATIN SPONGE SIZE 100. ONE (09:02)
[2019-04-24] MEDS ORDERED: THROMBIN TOPICAL 20,000 UNIT SPRAY.SYRN KIT TP ONE (09:02)
[2019-04-24] MEDS: IV NORMAL SALINE 1000ML BAG 1,000 ML IV SCH (11:00)
[2019-04-24] MEDS ORDERED: MANNITOL 25% 12.5 G/50 ML VIAL FOR OR. ONE (11:23)
[2019-04-24] MEDS ORDERED: SEVOFLURANE 61 TO 120 MINUTES. IH ONE (11:30)
[2019-04-24] MEDS ORDERED: GLYCOPYRROLATE 1 MG/5 ML VIAL. ONE (11:31)
[2019-04-24] MEDS ORDERED: fentaNYL PF VIAL 100 MCG/2 ML VIAL ONE ×2 (11:31→14:33)
[2019-04-24] MEDS ORDERED: LIDOCAINE 2% PF 5 ML VIAL. ONE (11:32)
[2019-04-24] MEDS ORDERED: ONDANSETRON PF 4 MG/2 ML VIAL. ONE (11:32)
[2019-04-24] MEDS ORDERED: ROCURONIUM 50 MG/5 ML VIAL. ONE (11:32)
[2019-04-24] MEDS ORDERED: NEOSTIGMINE METHYLSULFATE 5 MG/5 ML SYRINGE. ONE (11:32)
[2019-04-24] MEDS ORDERED: DEXAMETHASONE SOD PHOS 20 MG/5 ML VIAL. ONE (11:32)
[2019-04-24] MEDS ORDERED: PROPOFOL 20 ML IV ONE (11:32)
[2019-04-24] MEDS ORDERED: BISACODYL 10 MG SUPP.RECT. PR ONE (11:45)
--- NOTE | 2019-04-24 11:59 | RAD ---
Examination: CT HEAD WO CONTRAST History: Subdural hemorrhage follow-up Comparison/Correlation: 04/23/2019 CT head without contrast Findings: Axial images of the head were obtained without contrast. Coronal reformatted images were provided. At the left lateral convexity, there is a subdural collection which is unchanged in size and morphology. Greater density at the dependent aspect is more notable since the prior exam. Mass effect again seen upon the left lateral ventricle. Mass effect in the left frontal gyri is notable. Slight midline shift to the right is again seen. Atrophy is present. Globes appears unremarkable. Bony structures unremarkable. Globes and optic nerves are unremarkable. Impression: Greater density at the dependent aspect of a large left subdural hematoma which may represent formation of clot in the interval is noted. Possibly of additional hemorrhage in the interval is not excluded although there is no change in mass effect, morphology or size. PQRS Compliance Statement: One or more of the following individualized dose reduction techniques were utilized for this examination: 1. Automated exposure control 2. Adjustment of the mA and/or kV according to patient size 3. Use of iterative reconstruction technique Electronically signed by: Jemal Carrillo MD (04/24/2019 11:56 AM) [facility]
[2019-04-24] MEDS: BACITRACIN 50,000 UNIT in IV NORMAL SALINE 1000ML BAG 1,000 ML IRR ONE ×2 (13:07→14:35)
[2019-04-24] MEDS ORDERED: PHENYLEPHRINE in 0.9% NACL PF 1 MG/10 ML SYRINGE. IV ONE (13:50)
[2019-04-24] MEDS ORDERED: ePHEDrine PF IN SALINE 50 MG/10 ML SYRINGE. IV ONE (14:22)
--- NOTE | 2019-04-24 16:37 | RAD ---
Examination: KUB History: Abdominal pain Comparison/Correlation: None Findings: Portable supine frontal view of the abdomen was obtained. Right upper quadrant surgical clips are present. No suspicious abdominal calcifications. Pelvic calcifications are present probably representing phleboliths. No bowel obstruction. Impression: No definite suspicious process. Electronically signed by: Jemal Carrillo MD (04/24/2019 4:34 PM) [facility]
--- NOTE | 2019-04-24 17:30 | NUR ---
Patient agitated and trying to get out of bed. C/O pain. Nothing ordered for pain post-op. Call to Dr. Puentes - order for Dilaudid received. Family at the bedside assisting with keeping patient calm although patient remains pretty agitated and cussing everyone.
[2019-04-24] MEDS ORDERED: BISACODYL 10 MG SUPP.RECT. ONE (17:32)
[2019-04-24] MEDS: MIRTAZAPINE 7.5 MG TABLET. PO SCH (21:00)
[2019-04-24] MEDS: ATORVASTATIN CALCIUM 40 MG TABLET. PO SCH (21:00)
--- NOTE | 2019-04-24 22:47 | RAD ---
STUDY: CT head without contrast INDICATION: Altered mental status. COMPARISON: 04/24/2019 at 1009 hours. TECHNIQUE: Axial CT imaging through the head without the use of intravenous contrast. Sagittal and coronal reformats were obtained. One or more of the following individualized dose reduction techniques were utilized for this examination: 1. Automated exposure control 2. Adjustment of the mA and/or kV according to patient size 3. Use of iterative reconstruction technique. FINDINGS: Status post left parietal craniotomy with a surgical drain in place in the setting of a recently diagnosed left cerebral hemisphere subdural hematoma. Diminished volume of subdural hemorrhage. Pneumocephalus seen along the left cerebral hemisphere. Less pronounced sulcal effacement at the cephalad aspect of the frontal and parietal lobes. Diminished left to right midline shift now measured at 3.5 mm compared to 7 mm and the previously present slight rightward subfalcine herniation has now essentially resolved. No new site of intracranial hemorrhage. Sharif-white matter differentiation is maintained. IMPRESSION: Status post left parietal craniotomy and drain placement in the setting of a subdural hematoma. The volume of hemorrhage has decreased status post drain placement as has the degree of associated mass effect, as detailed above. No newly seen intracranial hemorrhage or sharif-white matter differentiation loss. Electronically signed by: ELLEN SALMON MD (04/24/2019 10:44 PM) [facility]
[2019-04-24] MEDS: ceFAZolin SODIUM IV Push 1 GM VIAL. IVP SCH (22:50)
--- NOTE | 2019-04-24 23:00 | NUR ---
Pt GCS 7 at beginning of shift; pt was not opening eyes nor speaking. Pt did move arms upward towards chest with sternal rub, no response to pinching fingertips. Pt was given PRN Dilaudid for pain at approx 1730 on the previous shift. Pupils 2 mm in size, PERLL. Pt had not had any urine output since returning from her procedure at approx 1535. Call placed to Dr. Gaspar's office. Updated ERVIN Arango, on pt status. Received order to do a head CT now, Tylenol 650 mg PO for pain if patient is alert and has c/o pain, bladder scan pt and okay to place welch if over 200 mL is scanned. Orders entered into system. CT of head completed, no new bleeding noted by radiologist. Pt has started to become more alert. Pt spontaneously opening eyes after CT. Pt speaks, but has expressive aphasia and is unable to say complete words and sentences. 213 mL urine scanned in bladder. RN placed welch catheter per SENIOR SECURITY ARCHITECT. Pt tolerated well. So far, 100 mL of dark yellow, cloudy urine drained from bladder. Will continue to monitor. Pt is now resting with eyes closed. Within sight of care team.
[2019-04-25] VITALS (18 sets, daily range): BP systolic 91–142; BP diastolic 55–96
[2019-04-25] MEDS: DEXAMETHASONE SOD PHOS 4 MG/ML VIAL IVP SCH ×3 (00:52→11:42)
[2019-04-25 06:03] LABS: HEMATOCRIT 40.8 % (36.0-47.0); HEMOGLOBIN 13.3 g/dL (12.0-15.5); RED BLOOD COUNT 4.55 x10^6/uL (3.50-5.40); RED CELL DISTRIBUTION WIDTH 14.3 % (11.5-14.5); WHITE BLOOD COUNT 22.9 x10^3/uL (4.0-11.0)
[2019-04-25 06:18] LABS: CALCIUM 8.8 mg/dL (8.5-10.1); CREATININE 0.9 mg/dL (0.6-1.0); GFR 62.5; POTASSIUM 3.7 mmol/L (3.5-5.1)
[2019-04-25] MEDS: ceFAZolin SODIUM IV Push 1 GM VIAL. IVP SCH ×2 (06:24→14:00)
[2019-04-25] MEDS: IV NORMAL SALINE 1000ML BAG 1,000 ML IV SCH (06:32)
[2019-04-25] MEDS: OLANZapine 5 MG TABLET PO PRN ×2 (07:39→10:29)
[2019-04-25] MEDS ORDERED: POTASSIUM CHLORIDE 20 MEQ TABLET.ER. PO ONE (07:45)
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
[2019-04-25] MEDS: CALCIUM CARB/VIT D3 500/200 TABLET. PO SCH (07:57)
[2019-04-25] MEDS: MULTIVITAMIN with MINERAL TABLET. PO SCH (07:57)
[2019-04-25] MEDS: LEVOTHYROXINE 75 MCG TABLET PO SCH (07:58)
[2019-04-25] MEDS: VITAMIN B12,B9,B6 COMPLEX 1 TABLET. PO SCH (07:58)
[2019-04-25] MEDS: CHOLECALCIFEROL (VITAMIN D3) 1,000 UNIT TABLET PO SCH (07:58)
[2019-04-25] MEDS: DIVALPROEX SPRINKLES 125 MG CAPSULE. PO SCH ×2 (08:00→19:13)
--- NOTE | 2019-04-25 09:12 | NUR ---
pt extremely confused, combative towards nursing staff, trying to get out of bed constantly, pull at drains/IVs, cursing. attempts to redirect unsuccessful. DR. ANDERSON at bedside, orders obtained for 1:1 sitter. RN in room at bedside.
--- NOTE | 2019-04-25 10:49 | NUR ---
SS following up with discharge planning. Pt now requiring oxygen. Pt more confused and with 1:1 sitter now. No PT/OT orders at this time. SS will continue to follow for discharge planning.
[2019-04-25] MEDS: ACETAMINOPHEN 325 MG TABLET. PO PRN (11:56)
[2019-04-25] MEDS ORDERED: HALOPERIDOL LACTATE 5 MG/ML VIAL. IVP ONE (12:30)
--- NOTE | 2019-04-25 12:30 | PDOC ---
PROGRESS NOTES Subjective Subjective confused , combative intermittently 1:1 nurse family at bedside Objective Objective Vital Signs Date Time Temp Pulse Resp B/P (MAP) Pulse Ox O2 Delivery O2 Flow Rate FiO2 04/25/19 11:39 Room Air 04/25/19 11:00 100 21 120/90 (100) 93 04/25/19 10:01 4.0 04/25/19 04:00 99.1 99.1 Intake and Output 04/25/19 06:59 Intake Total 1112.83 ml Output Total 355 ml Balance 757.83 ml Intake Oral 0 ml IV Total 1112.83 ml Output Urine Total 285 ml Drainage Total 70 ml Physical Exam General: Other (confused) MUSCULOSKELETAL: Other (MEJIA, strength 5/5 ) Skin: Other (drain removed, clayton intact, dry) Plan Plan of Care keep in ICU today with 1:1 d/w RN and family Comment Review of Relevant I have reviewed the following items cyndi (where applicable) has been applied. Labs Laboratory Tests Test 04/25/19 05:00 White Blood Count 22.9 x10^3/uL (4.0-11.0) Red Blood Count 4.55 x10^6/uL (3.50-5.40) Hemoglobin 13.3 g/dL (12.0-15.5) Hematocrit 40.8 % (36.0-47.0) Mean Corpuscular Volume 90 fL (79-100) Mean Corpuscular Hemoglobin 29 pg (25-35) Mean Corpuscular Hemoglobin Concent 33 g/dL (31-37) Red Cell Distribution Width 14.3 % (11.5-14.5) Platelet Count 244 x10^3/uL (140-400) Sodium Level 147 mmol/L (136-145) Potassium Level 3.7 mmol/L (3.5-5.1) Chloride Level 110 mmol/L (98-107) Carbon Dioxide Level 23 mmol/L (21-32) Anion Gap 14 (6-14) Blood Urea Nitrogen 18 mg/dL (7-20) Creatinine 0.9 mg/dL (0.6-1.0) Estimated GFR (Cockcroft-Gault) 62.5 Glucose Level 107 mg/dL (70-99) Calcium Level 8.8 mg/dL (8.5-10.1) Laboratory Tests Test 04/25/19 05:00 White Blood Count 22.9 x10^3/uL (4.0-11.0) Red Blood Count 4.55 x10^6/uL (3.50-5.40) Hemoglobin 13.3 g/dL (12.0-15.5) Hematocrit 40.8 % (36.0-47.0) Mean Corpuscular Volume 90 fL (79-100) Mean Corpuscular Hemoglobin 29 pg (25-35) Mean Corpuscular Hemoglobin Concent 33 g/dL (31-37) Red Cell Distribution Width 14.3 % (11.5-14.5) Platelet Count 244 x10^3/uL (140-400) Sodium Level 147 mmol/L (136-145) Potassium Level 3.7 mmol/L (3.5-5.1) Chloride Level 110 mmol/L (98-107) Carbon Dioxide Level 23 mmol/L (21-32) Anion Gap 14 (6-14) Blood Urea Nitrogen 18 mg/dL (7-20) Creatinine 0.9 mg/dL (0.6-1.0) Estimated GFR (Cockcroft-Gault) 62.5 Glucose Level 107 mg/dL (70-99) Calcium Level 8.8 mg/dL (8.5-10.1) Medications Current Medications Aspirin (Children'S Aspirin) 81 mg DAILY PO Last administered on 04/23/19at 09:25; Start 04/23/19 at 09:00; Stop 04/24/19 at 11:09; Status DC Divalproex Sodium (Depakote Sprinkles) 125 mg BIDWMEALS PO Last administered on 04/23/19at 16:32; Start 04/22/19 at 17:30 Levothyroxine Sodium (Synthroid) 75 mcg DAILY PO Last administered on 04/25/19at 07:58; Start 04/23/19 at 09:00 Mirtazapine (Remeron) 7.5 mg QHS PO Last administered on 04/23/19at 20:06; Start 04/22/19 at 21:00 Olanzapine (ZyPREXA) 5 mg PRN Q2HR PRN PO ANXIETY / AGITATION Last administered on 04/25/19at 10:29; Start 04/22/19 at 17:15 Calcium/Vitamin D (Oscal D 500mg/ 200uts) 1 tab DAILY PO Last administered on 04/25/19 07:57; Start 04/23/19 at 09:00 Vitamin D (Vitamin D3) 1,000 unit DAILY PO Last administered on 04/25/19 07:58; Start 04/23/19 at 09:00 Multivitamins (Thera M Plus) 1 tab DAILY PO Last administered on 04/25/19 07:57; Start 04/23/19 at 09:00 Atorvastatin Calcium (Lipitor) 40 mg QHS PO Last administered on 04/23/19at 19:31; Start 04/22/19 at 21:00 Sodium Chloride 1,000 ml @ 50 mls/hr Q20H IV Last administered on 04/25/19 06:32; Start 04/22/19 at 19:00 Vitamin B Complex (Folbic Tablet) 1 tab DAILY PO Last administered on 04/25/19 07:58; Start 04/23/19 at 09:00 Levothyroxine Sodium (Synthroid) 75 mcg STK-MED ONCE .ROUTE ; Start 04/23/19 at 07:16; Stop 04/23/19 at 07:17; Status DC Dexamethasone Sodium Phosphate (Decadron) 2 mg Q6HRS IVP Last administered on 04/25/19at 11:42; Start 04/23/19 at 14:00; Stop 04/25/19 at 12:25; Status DC Cefazolin Sodium/ Dextrose 50 ml @ 100 mls/hr 1X PREOP IV Last administered on 04/24/19at 14:24; Start 04/24/19 at 11:00; Stop 04/24/19 at 18:00; Status DC Bacitracin 77405 unit/Sodium Chloride 1,000 ml @ 1,000 mls/hr 1X ONCE IRR Last administered on 04/24/19at 14:35; Start 04/24/19 at 06:00; Stop 04/24/19 at 06:59; Status DC Bupivacaine HCl/ Epinephrine Bitart (Sensorcain-Epi 0.5%-1:656651 Mpf) 30 ml 1X ONCE INJ Last administered on 04/24/19at 14:35; Start 04/24/19 at 06:30; Stop 04/24/19 at 06:31; Status DC Ondansetron HCl (Zofran) 4 mg PRN Q6HRS PRN IV NAUSEA/VOMITING; Start 04/24/19 at 07:00; Stop 04/25/19 at 06:59; Status DC Fentanyl Citrate (Fentanyl 2ml Vial) 25 mcg PRN Q5MIN PRN IV MILD PAIN 1-3; Start 04/24/19 at 07:00; Stop 04/25/19 at 06:59; Status DC Fentanyl Citrate (Fentanyl 2ml Vial) 50 mcg PRN Q5MIN PRN IV MODERATE TO SEVERE PAIN; Start 04/24/19 at 07:00; Stop 04/25/19 at 06:59; Status DC Morphine Sulfate (Morphine Sulfate) 1 mg PRN Q10MIN PRN IV SEVERE PAIN 7-10; Start 04/24/19 at 07:00; Stop 04/25/19 at 06:59; Status DC Ringer's Solution 1,000 ml @ 30 mls/hr Q24H IV ; Start 04/24/19 at 07:00; Stop 04/24/19 at 18:59; Status DC Lidocaine HCl (Xylocaine-Mpf 1% 2ml Vial) 2 ml PRN 1X PRN ID PRIOR TO IV START; Start 04/24/19 at 07:00; Stop 04/25/19 at 06:59; Status DC Hydromorphone HCl (Dilaudid) 0.5 mg PRN Q10MIN PRN IV SEV PAIN, Second choice Last administered on 04/24/19at 17:34; Start 04/24/19 at 07:00; Stop 04/25/19 at 06:59; Status DC Prochlorperazine Edisylate (Compazine) 5 mg PACU PRN PRN IV NAUSEA, MRX1; Start 04/24/19 at 07:00; Stop 04/25/19 at 06:59; Status DC Gelatin (Gelfoam Size 100) 1 each STK-MED ONCE .ROUTE Last administered on at 14:35; Start 04/24/19 at 09:02; Stop 04/24/19 at 09:02; Status DC Cellulose (Surgicel Hemostat 4x8) 1 each STK-MED ONCE .ROUTE ; Start 04/24/19 at 09:02; Stop 04/24/19 at 09:02; Status DC Thrombin 20,000 unit STK-MED ONCE TP Last administered on 04/24/19at 14:35; Start 04/24/19 at 09:02; Stop 04/24/19 at 09:03; Status DC Mannitol (Mannitol) 12.5 g STK-MED ONCE .ROUTE ; Start 04/24/19 at 11:23; Stop 04/24/19 at 11:23; Status DC Sevoflurane (Ultane) 60 ml STK-MED ONCE IH ; Start 04/24/19 at 11:30; Stop 04/24/19 at 11:31; Status DC Fentanyl Citrate (Fentanyl 2ml Vial) 100 mcg STK-MED ONCE .ROUTE ; Start at 11:31; Stop 04/24/19 at 11:31; Status DC Glycopyrrolate (Robinul) 1 mg STK-MED ONCE .ROUTE ; Start 04/24/19 at 11:31; Stop 04/24/19 at 11:32; Status DC Neostigmine Methylsulfate (Neostigmine Methylsulfate) 5 mg STK-MED ONCE .ROUTE ; Start 04/24/19 at 11:32; Stop 04/24/19 at 11:32; Status DC Rocuronium [place] (Zemuron) 50 mg STK-MED ONCE .ROUTE ; Start 04/24/19 at 11 :32; Stop 04/24/19 at 11:32; Status DC Ondansetron HCl (Zofran) 4 mg STK-MED ONCE .ROUTE ; Start 04/24/19 at 11:32; Stop 04/24/19 at 11:32; Status DC Dexamethasone Sodium Phosphate (Decadron) 20 mg STK-MED ONCE .ROUTE ; Start 04/24/19 at 11:32; Stop 04/24/19 at 11:32; Status DC Propofol 20 ml @ As Directed STK-MED ONCE IV ; Start 04/24/19 at 11:32; Stop 04/24/19 at 11:32; Status DC Lidocaine HCl (Lidocaine Pf 2% Vial) 5 ml STK-MED ONCE .ROUTE ; Start 04/24/19 at 11:32; Stop 04/24/19 at 11:32; Status DC Bisacodyl (Dulcolax Supp) 10 mg 1X ONCE [place] Last administered on 04/24/19at 17:34; Start 04/24/19 at 11:45; Stop 04/24/19 at 11:46; Status DC Phenylephrine HCl (PHENYLEPHRINE in 0.9% NACL PF) 1 mg STK-MED ONCE IV ; Start 04/24/19 at 13:50; Stop 04/24/19 at 13:51; Status DC Ephedrine Sulfate (ePHEDrine PF IN SALINE SYRINGE) 50 mg STK-MED ONCE IV ; Start 04/24/19 at 14:22; Stop 04/24/19 at 14:23; Status DC Fentanyl Citrate (Fentanyl 2ml Vial) 100 mcg STK-MED ONCE .ROUTE ; Start 04/24/19 at 14:33; Stop 04/24/19 at 14:34; Status DC Cefazolin Sodium 50 ml @ 100 mls/hr Q8HRS IV ; Start 04/24/19 at 22:00; Stop 04/25/19 at 15:00; Status Cancel Cefazolin Sodium (Ancef) 1 gm Q8HRS IVP Last administered on 04/25/19at 06:24; Start 04/24/19 at 22:00 Hydromorphone HCl (Dilaudid) 0.5 mg PRN Q4HRS PRN IV PAIN; Start 04/24/19 at 17:30 Bisacodyl (Dulcolax Supp) 10 mg STK-MED ONCE .ROUTE ; Start 04/24/19 at 17:32; Stop 04/24/19 at 17:32; Status DC Acetaminophen (Tylenol) 650 mg PRN Q6HRS PRN PO PAIN Last administered on 04/25/19at 11:56; Start 04/24/19 at 21:45 Potassium Chloride (Klor-Con) 20 meq 1X ONCE PO Last administered on 04/25/19at 07:57; Start 04/25/19 at 07:45; Stop 04/25/19 at 07:46; Status DC Active Scripts Active Reported Mirtazapine 7.5 Mg Tablet 1 Tab PO QHS 30 Days Divalproex Sodium 500 Mg Tablet.dr 125 Mg PO BIDWMEALS Olanzapine 5 Mg Tablet 1 Tab PO PRN Q2HR PRN Levothyroxine Sodium 75 Mcg Tablet 1 Tab PO DAILY Aspirin 81 Mg Tab.chew 1 Tab PO DAILY Rosuvastatin Calcium 10 Mg Tablet 10 Mg PO HS Vitamin D3 (Cholecalciferol (Vitamin D3)) 2,000 Unit Tablet 1 Tab PO DAILY 30 Days Citracal + D Er Tablet (Calcium Carb & Cit/Vitamin D3) 1 Each Tablet.er 1 Each PO DAILY Centrum Silver Women Tablet (Multivits-Min/Iron/FA/Lutein) 1 Each Tablet 1 Each PO DAILY Vitals/I & O Vital Sign - Last 24 Hours 04/24/19 04/24/19 04/24/19 04/24/19 13:00 15:30 15:45 16:00 Temp 97.4 97.4 Pulse 80 90 86 Resp 18 10 10 B/P (MAP) 110/64 (79) 93/51 (65) 91/51 (64) Pulse Ox 98 98 99 O2 Delivery Room Air Room Air Room Air Room Air 04/24/19 04/24/19 04/24/19 04/24/19 16:00 16:15 16:30 17:00 Pulse 88 84 84 93 Resp 10 10 10 14 B/P (MAP) 91/47 (62) 93/55 (68) 93/55 (68) 105/67 (80) Pulse Ox 99 99 98 98 O2 Delivery Room Air Room Air Room Air Room Air 04/24/19 04/24/19 04/24/19 04/24/19 17:34 18:05 18:14 19:00 Pulse 93 87 Resp 16 14 10 10 B/P (MAP) 87/52 (64) 83/56 (65) Pulse Ox 97 98 96 O2 Delivery Simple Mask Room Air Simple Mask Nasal Cannula O2 Flow Rate 5.0 04/24/19 04/24/19 04/24/19 04/24/19 20:00 20:00 21:00 22:00 Temp 98.0 98.0 Pulse 80 89 86 Resp 12 10 13 B/P (MAP) 116/78 (91) 103/69 (80) 115/70 (85) Pulse Ox 97 96 92 O2 Delivery Nasal Cannula Nasal Cannula Nasal Cannula Nasal Cannula O2 Flow Rate 5.0 5.0 5.0 5.0 04/24/19 04/24/19 04/25/19 04/25/19 23:00 23:59 00:00 01:00 Temp 98.9 98.9 Pulse 82 86 80 Resp 16 21 11 B/P (MAP) 101/70 (80) 110/64 (79) 101/60 (74) Pulse Ox 97 95 97 O2 Delivery Nasal Cannula Nasal Cannula Nasal Cannula Nasal Cannula O2 Flow Rate 5.0 5.0 5.0 5.0 04/25/19 04/25/19 04/25/19 04/25/19 02:00 03:00 04:00 04:00 Temp 99.1 99.1 Pulse 93 103 102 Resp 23 27 25 B/P (MAP) 112/56 (74) 113/83 (93) 139/63 (88) Pulse Ox 95 95 94 O2 Delivery Nasal Cannula Nasal Cannula Nasal Cannula Nasal Cannula O2 Flow Rate 5.0 5.0 4.0 4.0 04/25/19 04/25/19 04/25/19 04/25/19 05:00 06:00 08:00 09:00 Pulse 97 96 85 Resp 18 20 14 B/P (MAP) 142/57 (85) 141/96 (111) 120/68 (85) Pulse Ox 95 98 98 O2 Delivery Nasal Cannula Nasal Cannula Nasal Cannula Nasal Cannula O2 Flow Rate 4.0 4.0 4.0 4.0 04/25/19 04/25/19 04/25/19 10:01 11:00 11:39 Pulse 96 100 Resp 20 21 B/P (MAP) 120/90 (100) Pulse Ox 98 93 O2 Delivery Nasal Cannula Room Air Room Air O2 Flow Rate 4.0 Intake and Output 04/24/19 04/24/19 04/25/19 14:59 22:59 06:59 Intake Total 0 ml 500 ml 612.83 ml Output Total 30 ml 325 ml Balance 0 ml 470 ml 287.83 ml Nutrition Consultation Dietary Evaluation: Recommendations by RD: Protein supplementation Comments: REC continue w/regular diet, add ground meats to ease w/chewing; honor food preferences and provide snacks as requested REC Ensure w/lunch trays Expected Outcomes/Goals: PO intake to meet >75% est needs Malnutrition Findings: Weight Status: Appropriate TASHI COUCH APRN Apr 25, 2019 12:30
[2019-04-25] MEDS: HALOPERIDOL LACTATE 5 MG/ML VIAL. IVP PRN (15:40)
[2019-04-25] MEDS ORDERED: NITROGLYCERIN OINT 1 GM PACKET. TP SCH (18:00)
[2019-04-25] MEDS: ATORVASTATIN CALCIUM 40 MG TABLET. PO SCH (20:57)
[2019-04-25] MEDS: MIRTAZAPINE 7.5 MG TABLET. PO SCH (20:57)
[2019-04-26] VITALS (18 sets, daily range): BP systolic 84–142; BP diastolic 49–95
[2019-04-26] MEDS: IV NORMAL SALINE 1000ML BAG 1,000 ML IV SCH (05:26)
[2019-04-26] MEDS: ACETAMINOPHEN 325 MG TABLET. PO PRN (05:43)
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
[2019-04-26] MEDS: CHOLECALCIFEROL (VITAMIN D3) 1,000 UNIT TABLET PO SCH (09:16)
[2019-04-26] MEDS: DIVALPROEX SPRINKLES 125 MG CAPSULE. PO SCH ×2 (09:16→17:05)
[2019-04-26] MEDS: VITAMIN B12,B9,B6 COMPLEX 1 TABLET. PO SCH (09:16)
[2019-04-26] MEDS: CALCIUM CARB/VIT D3 500/200 TABLET. PO SCH (09:16)
[2019-04-26] MEDS: LEVOTHYROXINE 75 MCG TABLET PO SCH (09:16)
[2019-04-26] MEDS: MULTIVITAMIN with MINERAL TABLET. PO SCH (09:16)
--- NOTE | 2019-04-26 10:20 | PDOC ---
PROGRESS NOTES Subjective Subjective pod #2 S/P evacuation of SDH awake, alert, calm denies pain or headache 1:1 nurse Objective Objective Vital Signs Date Time Temp Pulse Resp B/P (MAP) Pulse Ox O2 Delivery O2 Flow Rate FiO2 04/26/19 09:00 68 20 112/65 (81) 96 Room Air 04/26/19 07:00 98.1 98.1 04/25/19 10:01 4.0 Intake and Output 04/26/19 07:00 Intake Total 3377.56 ml Output Total 2360 ml Balance 1017.56 ml Intake Oral 2810 ml IV Total 567.56 ml Output Urine Total 2280 ml Drainage Total 80 ml # Bowel Movements 3 Physical Exam General: Alert, Cooperative, Other (follows some commands) MUSCULOSKELETAL: Other (MEJIA) Skin: Other (dressing C,D,I) Plan Plan of Care ok to transfer to floor PT increase activity as tolerated likely will need SNF Comment Review of Relevant I have reviewed the following items cyndi (where applicable) has been applied. Labs Laboratory Tests Test 04/25/19 05:00 White Blood Count 22.9 x10^3/uL (4.0-11.0) Red Blood Count 4.55 x10^6/uL (3.50-5.40) Hemoglobin 13.3 g/dL (12.0-15.5) Hematocrit 40.8 % (36.0-47.0) Mean Corpuscular Volume 90 fL (79-100) Mean Corpuscular Hemoglobin 29 pg (25-35) Mean Corpuscular Hemoglobin Concent 33 g/dL (31-37) Red Cell Distribution Width 14.3 % (11.5-14.5) Platelet Count 244 x10^3/uL (140-400) Sodium Level 147 mmol/L (136-145) Potassium Level 3.7 mmol/L (3.5-5.1) Chloride Level 110 mmol/L (98-107) Carbon Dioxide Level 23 mmol/L (21-32) Anion Gap 14 (6-14) Blood Urea Nitrogen 18 mg/dL (7-20) Creatinine 0.9 mg/dL (0.6-1.0) Estimated GFR (Cockcroft-Gault) 62.5 Glucose Level 107 mg/dL (70-99) Calcium Level 8.8 mg/dL (8.5-10.1) Medications Current Medications Aspirin (Children'S Aspirin) 81 mg DAILY PO Last administered on 04/23/19 09:25; Start 04/23/19 at 09:00; Stop 04/24/19 at 11:09; Status DC Divalproex Sodium (Depakote Sprinkles) 125 mg BIDWMEALS PO Last administered on 04/26/19 09:16; Start 04/22/19 at 17:30 Levothyroxine Sodium (Synthroid) 75 mcg DAILY PO Last administered on 04/26/19 09:16; Start 04/23/19 at 09:00 Mirtazapine (Remeron) 7.5 mg QHS PO Last administered on 04/25/19 20:57; Start 04/22/19 at 21:00 Olanzapine (ZyPREXA) 5 mg PRN Q2HR PRN PO ANXIETY / AGITATION Last administered on 04/25/19 10:29; Start 04/22/19 at 17:15 Calcium/Vitamin D (Oscal D 500mg/ 200uts) 1 tab DAILY PO Last administered on 04/26/19 09:16; Start 04/23/19 at 09:00 Vitamin D (Vitamin D3) 1,000 unit DAILY PO Last administered on 04/26/19 09:16; Start 04/23/19 at 09:00 Multivitamins (Thera M Plus) 1 tab DAILY PO Last administered on 04/26/19 09:16; Start 04/23/19 at 09:00 Atorvastatin Calcium (Lipitor) 40 mg QHS PO Last administered on 04/25/19 20:57; Start 04/22/19 at 21:00 Sodium Chloride 1,000 ml @ 50 mls/hr Q20H IV Last administered on 04/26/19 05:26; Start 04/22/19 at 19:00 Vitamin B Complex (Folbic Tablet) 1 tab DAILY PO Last administered on 04/26/19 09:16; Start 04/23/19 at 09:00 Levothyroxine Sodium (Synthroid) 75 mcg STK-MED ONCE .ROUTE ; Start 04/23/19 at 07:16; Stop 04/23/19 at 07:17; Status DC Dexamethasone Sodium Phosphate (Decadron) 2 mg Q6HRS IVP Last administered on 12/12/19at 11:42; Start 04/23/19 at 14:00; Stop 04/25/19 at 12:25; Status DC Cefazolin Sodium/ Dextrose 50 ml @ 100 mls/hr 1X PREOP IV Last administered on 04/24/19at 14:24; Start 04/24/19 at 11:00; Stop 04/24/19 at 18:00; Status DC Bacitracin 48350 unit/Sodium Chloride 1,000 ml @ 1,000 mls/hr 1X ONCE IRR Last administered on 04/24/19at 14:35; Start 04/24/19 at 06:00; Stop 04/24/19 at 06:59; Status DC Bupivacaine HCl/ Epinephrine Bitart (Sensorcain-Epi 0.5%-1:908154 Mpf) 30 ml 1X ONCE INJ Last administered on 04/24/19at 14:35; Start 04/24/19 at 06:30; Stop 04/24/19 at 06:31; Status DC Ondansetron HCl (Zofran) 4 mg PRN Q6HRS PRN IV NAUSEA/VOMITING; Start 04/24/19 at 07:00; Stop 04/25/19 at 06:59; Status DC Fentanyl Citrate (Fentanyl 2ml Vial) 25 mcg PRN Q5MIN PRN IV MILD PAIN 1-3; Start 04/24/19 at 07:00; Stop 04/25/19 at 06:59; Status DC Fentanyl Citrate (Fentanyl 2ml Vial) 50 mcg PRN Q5MIN PRN IV MODERATE TO SEVERE PAIN; Start 04/24/19 at 07:00; Stop 04/25/19 at 06:59; Status DC Morphine Sulfate (Morphine Sulfate) 1 mg PRN Q10MIN PRN IV SEVERE PAIN 7-10; Start 04/24/19 at 07:00; Stop 04/25/19 at 06:59; Status DC Ringer's Solution 1,000 ml @ 30 mls/hr Q24H IV ; Start 04/24/19 at 07:00; Stop 04/24/19 at 18:59; Status DC Lidocaine HCl (Xylocaine-Mpf 1% 2ml Vial) 2 ml PRN 1X PRN ID PRIOR TO IV START; Start 04/24/19 at 07:00; Stop 04/25/19 at 06:59; Status DC Hydromorphone HCl (Dilaudid) 0.5 mg PRN Q10MIN PRN IV SEV PAIN, Second choice Last administered on 04/24/19at 17:34; Start 04/24/19 at 07:00; Stop 04/25/19 at 06:59; Status DC Prochlorperazine Edisylate (Compazine) 5 mg PACU PRN PRN IV NAUSEA, MRX1; Start 04/24/19 at 07:00; Stop 04/25/19 at 06:59; Status DC Gelatin (Gelfoam Size 100) 1 each STK-MED ONCE .ROUTE Last administered on 04/24/19at 14:35; Start 04/24/19 at 09:02; Stop 04/24/19 at 09:02; Status DC Cellulose (Surgicel Hemostat 4x8) 1 each STK-MED ONCE .ROUTE ; Start 04/24/19 at 09:02; Stop 04/24/19 at 09:02; Status DC Thrombin 20,000 unit STK-MED ONCE TP Last administered on 04/24/19at 14:35; Start 04/24/19 at 09:02; Stop 04/24/19 at 09:03; Status DC Mannitol (Mannitol) 12.5 g STK-MED ONCE .ROUTE ; Start 04/24/19 at 11:23; Stop 04/24/19 at 11:23; Status DC Sevoflurane (Ultane) 60 ml STK-MED ONCE IH ; Start 04/24/19 at 11:30; Stop 04/24/19 at 11:31; Status DC Fentanyl Citrate (Fentanyl 2ml Vial) 100 mcg STK-MED ONCE .ROUTE ; Start 04/24/19 at 11:31; Stop 04/24/19 at 11:31; Status DC Glycopyrrolate (Robinul) 1 mg STK-MED ONCE .ROUTE ; Start 04/24/19 at 11:31; Stop 04/24/19 at 11:32; Status DC Neostigmine Methylsulfate (Neostigmine Methylsulfate) 5 mg STK-MED ONCE .ROUTE ; Start 04/24/19 at 11:32; Stop 04/24/19 at 11:32; Status DC Rocuronium [place] (Zemuron) 50 mg STK-MED ONCE .ROUTE ; Start 04/24/19 at 11:32; Stop 12/11/19 at 11:32; Status DC Ondansetron HCl (Zofran) 4 mg STK-MED ONCE .ROUTE ; Start 04/24/19 at 11:32; Stop 04/24/19 at 11:32; Status DC Dexamethasone Sodium Phosphate (Decadron) 20 mg STK-MED ONCE .ROUTE ; Start 04/24/19 at 11:32; Stop 04/24/19 at 11:32; Status DC Propofol 20 ml @ As Directed STK-MED ONCE IV ; Start 04/24/19 at 11:32; Stop 1 06/25/18 at 11:32; Status DC Lidocaine HCl (Lidocaine Pf 2% Vial) 5 ml STK-MED ONCE .ROUTE ; Start 04/24/19 at 11:32; Stop 04/24/19 at 11:32; Status DC Bisacodyl (Dulcolax Supp) 10 mg 1X ONCE [place] Last administered on 04/24/19at 17:34; Start 04/24/19 at 11:45; Stop 04/24/19 at 11:46; Status DC Phenylephrine HCl (PHENYLEPHRINE in 0.9% NACL PF) 1 mg STK-MED ONCE IV ; Start 04/24/19 at 13:50; Stop 04/24/19 at 13:51; Status DC Ephedrine Sulfate (ePHEDrine PF IN SALINE SYRINGE) 50 mg STK-MED ONCE IV ; Start 04/24/19 at 14:22; Stop 04/24/19 at 14:23; Status DC Fentanyl Citrate (Fentanyl 2ml Vial) 100 mcg STK-MED ONCE .ROUTE ; Start 04/24/19 at 14:33; Stop 04/24/19 at 14:34; Status DC Cefazolin Sodium 50 ml @ 100 mls/hr Q8HRS IV ; Start 04/24/19 at 22:00; Stop 04/25/19 at 15:00; Status Cancel Cefazolin Sodium (Ancef) 1 gm Q8HRS IVP Last administered on 04/25/19at 06:24; Start 04/24/19 at 22:00; Stop 04/25/19 at 15:24; Status DC Hydromorphone HCl (Dilaudid) 0.5 mg PRN Q4HRS PRN IV PAIN; Start 04/24/19 at 17:30 Bisacodyl (Dulcolax Supp) 10 mg STK-MED ONCE .ROUTE ; Start 04/24/19 at 17:32; Stop 04/24/19 at 17:32; Status DC Acetaminophen (Tylenol) 650 mg PRN Q6HRS PRN PO PAIN Last administered on 04/26/19at 05:43; Start 04/24/19 at 21:45 Potassium Chloride (Klor-Con) 20 meq 1X ONCE PO Last administered on 04/25/19at 07:57; Start 04/25/19 at 07:45; Stop 04/25/19 at 07:46; Status DC Haloperidol Lactate (Haldol Inj) 5 mg 1X ONCE IVP Last administered on 04/25/19at 12:34; Start 04/25/19 at 12:30; Stop 04/25/19 at 12:31; Status DC Haloperidol Lactate (Haldol Inj) 2.5 mg PRN Q4HRS PRN IVP AGITATION Last administered on 04/25/19at 15:40; Start 04/25/19 at 15:30 Nitroglycerin (Nitro-Bid Oint) 1 inch Q6HRS TP ; Start 04/25/19 at 18:00; St atus Cancel Active Scripts Active Reported Mirtazapine 7.5 Mg Tablet 1 Tab PO QHS 30 Days Divalproex Sodium 500 Mg Tablet.dr 125 Mg PO BIDWMEALS Olanzapine 5 Mg Tablet 1 Tab PO PRN Q2HR PRN Levothyroxine Sodium 75 Mcg Tablet 1 Tab PO DAILY Aspirin 81 Mg Tab.chew 1 Tab PO DAILY Rosuvastatin Calcium 10 Mg Tablet 10 Mg PO HS Vitamin D3 (Cholecalciferol (Vitamin D3)) 2,000 Unit Tablet 1 Tab PO DAILY 30 Days Citracal + D Er Tablet (Calcium Carb & Cit/Vitamin D3) 1 Each Tablet.er 1 Each PO DAILY Centrum Silver Women Tablet (Multivits-Min/Iron/FA/Lutein) 1 Each Tablet 1 Each PO DAILY Vitals/I & O Vital Sign - Last 24 Hours 04/25/19 04/25/19 04/25/19 04/25/19 11:00 11:39 12:00 13:00 Temp 98.0 98.0 Pulse 100 106 85 Resp B/P (MAP) 120/90 (100) 117/80 (92) Pulse Ox 93 98 94 O2 Delivery Room Air Room Air Room Air Room Air 04/25/19 04/25/19 04/25/19 04/25/19 14:00 15:00 16:00 16:00 Temp 98.1 98.1 Pulse 78 87 106 Resp 21 21 20 B/P (MAP) 118/66 (83) 117/80 (92) Pulse Ox 93 93 98 O2 Delivery Room Air Room Air Room Air Room Air 04/25/19 04/25/19 04/25/19 04/25/19 17:00 18:00 19:00 20:00 Temp 98.9 98.9 Pulse 85 87 85 83 Resp 21 21 16 18 B/P (MAP) 93/74 (80) 105/63 (77) 106/55 (72) Pulse Ox 93 93 94 93 O2 Delivery Room Air Room Air Room Air Room Air 04/25/19 04/25/19 04/25/19 04/25/19 20:00 21:00 22:00 23:00 Pulse 78 93 73 Resp 15 23 14 B/P (MAP) 91/55 (67) 117/82 (94) 104/56 (72) Pulse Ox 92 93 94 O2 Delivery Room Air Room Air Room Air Room Air 04/25/19 04/26/19 04/26/19 04/26/19 23:59 00:00 01:00 02:00 Temp 98.5 98.5 Pulse 72 78 52 Resp 14 23 13 B/P (MAP) 84/52 (63) 94/80 (85) 92/55 (67) Pulse Ox 92 93 93 O2 Delivery Room Air Room Air Room Air Room Air 04/26/19 04/26/19 04/26/19 04/26/19 03:00 04:00 04:00 05:00 Temp 98.0 98.0 Pulse 61 66 51 Resp 16 19 20 B/P (MAP) 99/59 (72) 121/77 (92) 116/65 (82) Pulse Ox 93 92 93 O2 Delivery Room Air Room Air Room Air Room Air 04/26/19 04/26/19 04/26/19 04/26/19 06:00 07:00 08:00 08:00 Temp 98.1 98.1 Pulse 64 54 71 Resp 25 14 28 B/P (MAP) 123/68 (86) 104/66 (79) 104/57 (73) Pulse Ox 93 94 96 O2 Delivery Room Air Room Air Room Air Room Air 04/26/19 09:00 Pulse 68 Resp 20 B/P (MAP) 112/65 (81) Pulse Ox 96 O2 Delivery Room Air Intake and Output 04/25/19 04/25/19 04/26/19 15:00 23:00 07:00 Intake Total 470 ml 1440 ml 1467.56 ml Output Total 1055 ml 830 ml 475 ml Balance -585 ml 610 ml 992.56 ml Nutrition Consultation Dietary Evaluation: Recommendations by RD: Protein supplementation Comments: REC continue w/regular diet, ground meats REC Ensure w/lunch trays Expected Outcomes/Goals: PO intake to meet >75% est needs - met, goal ongoing Malnutrition Findings: Weight Status: Appropriate TASHI COUCH APRN Apr 26, 2019 10:20
--- NOTE | 2019-04-26 15:47 | NUR ---
Received patient transfer from ICU, film writer agrees with previous head to toe assessment, 1:1 ASSISTANT PRODUCTION EDITOR in room with patient, will continue to monitor.
--- NOTE | 2019-04-26 18:06 | PATHOLOGY ---
[facility] Accession Number: [id number] . 01 Material submitted: . head - LEFT SUBDURAL HEMATOMA. Modifiers: left . 01 Clinical history: . Left cerebral convexity subdural hematoma. . 02 Diagnosis: Left subdural evacuation: - Hematoma and minute bone fragments. . (JPM:mm; 04/26/2019) [facility] 04/26/2019 0957 Local . 02 Electronically signed: . Blair Chacon MD, Pathologist NPI- [id number] . 01 Gross description: . The specimen is received labeled "Oliva Bob, left subdural hematoma". The specimen consists of red-brown blood tinged formalin, which is filtered to reveal scant hemorrhagic red-brown tissue fragments measuring 1.8 x 0.3 x 0.1 cm. The specimen is submitted in cassette A1, but may not survive processing. The formalin is retained. [place] 04/25/2019) [facility] 04/25/2019 1820 Local . 02 Pathologist provided ICD-10: I62.00 . 02 CPT . 067510 Specimen Comment: A courtesy copy of this report has been sent to [phone], [phone] Specimen Comment: [phone], Specimen Comment: Report sent to , and Performed at: 01 [facility] [address], [place] [id number] MD Konrad Griffin MD Phone: [phone] Performed at: 02 [facility] [address], [place] [id number] MD Blair Chacon MD Phone: [phone]
[2019-04-26] MEDS: MIRTAZAPINE 7.5 MG TABLET. PO SCH (20:10)
[2019-04-26] MEDS: ATORVASTATIN CALCIUM 40 MG TABLET. PO SCH (20:10)
[2019-04-27 03:00] VITALS: BP 129/71
--- NOTE | 2019-04-27 05:46 | NUR ---
Patient refused 04/26 2100 PO meds offered in pudding.
[2019-04-27 07:00] VITALS: BP 118/62
[2019-04-27] MEDS: LEVOTHYROXINE 75 MCG TABLET PO SCH (08:22)
[2019-04-27] MEDS: DIVALPROEX SPRINKLES 125 MG CAPSULE. PO SCH ×2 (08:22→17:01)
[2019-04-27] MEDS: CHOLECALCIFEROL (VITAMIN D3) 1,000 UNIT TABLET PO SCH (08:26)
[2019-04-27] MEDS: MULTIVITAMIN with MINERAL TABLET. PO SCH (08:26)
[2019-04-27] MEDS: CALCIUM CARB/VIT D3 500/200 TABLET. PO SCH (08:26)
[2019-04-27] MEDS: VITAMIN B12,B9,B6 COMPLEX 1 TABLET. PO SCH (08:26)
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
[2019-04-27 11:00] VITALS: BP 113/83
[2019-04-27 15:00] VITALS: BP 110/70
--- NOTE | 2019-04-27 15:33 | PDOC ---
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 Objective Objective Vital Signs Date Time Temp Pulse Resp B/P (MAP) Pulse Ox O2 Delivery O2 Flow Rate FiO2 04/27/19 11:00 98.0 108 16 113/83 (93) Room Air 98.0 04/27/19 07:00 98 04/25/19 10:01 4.0 Intake and Output 04/27/19 07:00 Intake Total 1180 ml Output Total 2395 ml Balance -1215 ml Intake Oral 1180 ml Output Urine Total 2395 ml Physical Exam General: Alert, Cooperative, No acute distress MUSCULOSKELETAL: Other (MEJIA) Skin: Other (dressing C,D,I) Plan Plan of Care increase activity as tolerated PT will need SNF Comment Review of Relevant I have reviewed the following items cyndi (where applicable) has been applied. Labs Laboratory Tests Test 04/26/19 20:05 Clostridium difficile Toxin B Gene Negative (Negative) Laboratory Tests Test 04/26/19 20:05 Clostridium difficile Toxin B Gene Negative (Negative) Medications Current Medications Aspirin (Children'S Aspirin) 81 mg DAILY PO Last administered on 04/23/19 09:25; Start 04/23/19 at 09:00; Stop 04/24/19 at 11:09; Status DC Divalproex Sodium (Depakote Sprinkles) 125 mg BIDWMEALS PO Last administered on 04/27/19 08:22; Start 04/22/19 at 17:30 Levothyroxine Sodium (Synthroid) 75 mcg DAILY PO Last administered on 08:22; Start 04/23/19 at 09:00 Mirtazapine (Remeron) 7.5 mg QHS PO Last administered on 04/25/19 20:57; Start 04/22/19 at 21:00 Olanzapine (ZyPREXA) 5 mg PRN Q2HR PRN PO ANXIETY / AGITATION Last administered on 04/25/19 10:29; Start 04/22/19 at 17:15 Calcium/Vitamin D (Oscal D 500mg/ 200uts) 1 tab DAILY PO Last administered on 04/26/19 09:16; Start 04/23/19 at 09:00 Vitamin D (Vitamin D3) 1,000 unit DAILY PO Last administered on 04/26/19 09:16; Start 04/23/19 at 09:00 Multivitamins (Thera M Plus) 1 tab DAILY PO Last administered on 04/26/19at 09:16; Start 04/23/19 at 09:00 Atorvastatin Calcium (Lipitor) 40 mg QHS PO Last administered on 04/25/19at 20:57; Start 04/22/19 at 21:00 Sodium Chloride 1,000 ml @ 50 mls/hr Q20H IV Last administered on 04/26/19 05:26; Start 04/22/19 at 19:00; Stop 04/26/19 at 14:11; Status DC Vitamin B Complex (Folbic Tablet) 1 tab DAILY PO Last administered on 04/26/19 09:16; Start 04/23/19 at 09:00 Levothyroxine Sodium (Synthroid) 75 mcg STK-MED ONCE .ROUTE ; Start 04/23/19 at 07:16; Stop 04/23/19 at 07:17; Status DC Dexamethasone Sodium Phosphate (Decadron) 2 mg Q6HRS IVP Last administered on 04/25/19at 11:42; Start 04/23/19 at 14:00; Stop 04/25/19 at 12:25; Status DC Cefazolin Sodium/ Dextrose 50 ml @ 100 mls/hr 1X PREOP IV Last administered on 04/24/19at 14:24; Start 04/24/19 at 11:00; Stop 04/24/19 at 18:00; Status DC Bacitracin 19244 unit/Sodium Chloride 1,000 ml @ 1,000 mls/hr 1X ONCE IRR Last administered on 04/24/19at 14:35; Start 04/24/19 at 06:00; Stop 04/24/19 at 06:59; Status DC Bupivacaine HCl/ Epinephrine Bitart (Sensorcain-Epi 0.5%-1:867101 Mpf) 30 ml 1X ONCE INJ Last administered on 04/24/19at 14:35; Start 04/24/19 at 06:30; Stop 04/24/19 at 06:31; Status DC Ondansetron HCl (Zofran) 4 mg PRN Q6HRS PRN IV NAUSEA/VOMITING; Start 04/24/19 at 07:00; Stop 04/25/19 at 06:59; Status DC Fentanyl Citrate (Fentanyl 2ml Vial) 25 mcg PRN Q5MIN PRN IV MILD PAIN 1-3; Start 04/24/19 at 07:00; Stop 04/25/19 at 06:59; Status DC Fentanyl Citrate (Fentanyl 2ml Vial) 50 mcg PRN Q5MIN PRN IV MODERATE TO SEVERE PAIN; Start 04/24/19 at 07:00; Stop 04/25/19 at 06:59; Status DC Morphine Sulfate (Morphine Sulfate) 1 mg PRN Q10MIN PRN IV SEVERE PAIN 7-10; Start 04/24/19 at 07:00; Stop 04/25/19 at 06:59; Status DC Ringer's Solution 1,000 ml @ 30 mls/hr Q24H IV ; Start 04/24/19 at 07:00; Stop 04/24/19 at 18:59; Status DC Lidocaine HCl (Xylocaine-Mpf 1% 2ml Vial) 2 ml PRN 1X PRN ID PRIOR TO IV START; Start 04/24/19 at 07:00; Stop 04/25/19 at 06:59; Status DC Hydromorphone HCl (Dilaudid) 0.5 mg PRN Q10MIN PRN IV SEV PAIN, Second choice Last administered on 04/24/19at 17:34; Start 04/24/19 at 07:00; Stop 04/25/19 at 06:59; Status DC Prochlorperazine Edisylate (Compazine) 5 mg PACU PRN PRN IV NAUSEA, MRX1; Start 04/24/19 at 07:00; Stop 04/25/19 at 06:59; Status DC Gelatin (Gelfoam Size 100) 1 each STK-MED ONCE .ROUTE Last administered on 04/24/19at 14:35; Start 04/24/19 at 09:02; Stop 04/24/19 at 09:02; Status DC Cellulose (Surgicel Hemostat 4x8) 1 each STK-MED ONCE .ROUTE ; Start 04/24/19 at 09:02; Stop 04/24/19 at 09:02; Status DC Thrombin 20,000 unit STK-MED ONCE TP Last administered on 04/24/19at 14:35; Start 04/24/19 at 09:02; Stop 04/24/19 at 09:03; Status DC Mannitol (Mannitol) 12.5 g STK-MED ONCE .ROUTE ; Start 04/24/19 at 11:23; Stop 04/24/19 at 11:23; Status DC Sevoflurane (Ultane) 60 ml STK-MED ONCE IH ; Start 04/24/19 at 11:30; Stop 04/24/19 at 11:31; Status DC Fentanyl Citrate (Fentanyl 2ml Vial) 100 mcg STK-MED ONCE .ROUTE ; Start 04/24/19 at 11:31; Stop 04/24/19 at 11:31; Status DC Glycopyrrolate (Robinul) 1 mg STK-MED ONCE .ROUTE ; Start 04/24/19 at 11:31; Stop 04/24/19 at 11:32; Status DC Neostigmine Methylsulfate (Neostigmine Methylsulfate) 5 mg STK-MED ONCE .ROUTE ; Start 04/24/19 at 11:32; Stop 04/24/19 at 11:32; Status DC Rocuronium [place] (Zemuron) 50 mg STK-MED ONCE .ROUTE ; Start 04/24/19 at 11:32; Stop 04/24/19 at 11:32; Status DC Ondansetron HCl (Zofran) 4 mg STK-MED ONCE .ROUTE ; Start 04/24/19 at 11:32; Stop 04/24/19 at 11:32; Status DC Dexamethasone Sodium Phosphate (Decadron) 20 mg STK-MED ONCE .ROUTE ; Start 04/24/19 at 11:32; Stop 04/24/19 at 11:32; Status DC Propofol 20 ml @ As Directed STK-MED ONCE IV ; Start 04/24/19 at 11:32; Stop 04/24/19 at 11:32; Status DC Lidocaine HCl (Lidocaine Pf 2% Vial) 5 ml STK-MED ONCE .ROUTE ; Start 04/24/19 at 11:32; Stop 04/24/19 at 11:32; Status DC Bisacodyl (Dulcolax Supp) 10 mg 1X ONCE AK Last administered on 04/24/19at 17:34; Start 04/24/19 at 11:45; Stop 04/24/19 at 11:46; Status DC Phenylephrine HCl (PHENYLEPHRINE in 0.9% NACL PF) 1 mg STK-MED ONCE IV ; Start 04/24/19 at 13:50; Stop 04/24/19 at 13:51; Status DC Ephedrine Sulfate (ePHEDrine PF IN SALINE SYRINGE) 50 mg STK-MED ONCE IV ; Start 04/24/19 at 14:22; Stop 04/24/19 at 14:23; Status DC Fentanyl Citrate (Fentanyl 2ml Vial) 100 mcg STK-MED ONCE .ROUTE ; Start 04/24/19 at 14:33; Stop 04/24/19 at 14:34; Status DC Cefazolin Sodium 50 ml @ 100 mls/hr Q8HRS IV ; Start 04/24/19 at 22:00; Stop 04/25/19 at 15:00; Status Cancel Cefazolin Sodium (Ancef) 1 gm Q8HRS IVP Last administered on 04/25/19at 06:24; Start 04/24/19 at 22:00; Stop 04/25/19 at 15:24; Status DC Hydromorphone HCl (Dilaudid) 0.5 mg PRN Q4HRS PRN IV PAIN; Start 04/24/19 at 17:30 Bisacodyl (Dulcolax Supp) 10 mg STK-MED ONCE .ROUTE ; Start 04/24/19 at 17:32; Stop 04/24/19 at 17:32; Status DC Acetaminophen (Tylenol) 650 mg PRN Q6HRS PRN PO PAIN Last administered on 04/26/19at 05:43; Start 04/24/19 at 21:45 Potassium Chloride (Klor-Con) 20 meq 1X ONCE PO Last administered on 04/25/19at 07:57; Start 04/25/19 at 07:45; Stop 04/25/19 at 07:46; Status DC Haloperidol Lactate (Haldol Inj) 5 mg 1X ONCE IVP Last administered on 04/25/19at 12:34; Start 04/25/19 at 12:30; Stop 04/25/19 at 12:31; Status DC Haloperidol Lactate (Haldol Inj) 2.5 mg PRN Q4HRS PRN IVP AGITATION Last administered on 04/25/19at 15:40; Start 04/25/19 at 15:30 Nitroglycerin (Nitro-Bid Oint) 1 inch Q6HRS TP ; Start 04/25/19 at 18:00; Status Cancel Active Scripts Active Reported Mirtazapine 7.5 Mg Tablet 1 Tab PO QHS 30 Days Divalproex Sodium 500 Mg Tablet.dr 125 Mg PO BIDWMEALS Olanzapine 5 Mg Tablet 1 Tab PO PRN Q2HR PRN Levothyroxine Sodium 75 Mcg Tablet 1 Tab PO DAILY Aspirin 81 Mg Tab.chew 1 Tab PO DAILY Rosuvastatin Calcium 10 Mg Tablet 10 Mg PO HS Vitamin D3 (Cholecalciferol (Vitamin D3)) 2,000 Unit Tablet 1 Tab PO DAILY 30 Days Citracal + D Er Tablet (Calcium Carb & Cit/Vitamin D3) 1 Each Tablet.er 1 Each PO DAILY Centrum Silver Women Tablet (Multivits-Min/Iron/FA/Lutein) 1 Each Tablet 1 Each PO DAILY Vitals/I & O Vital Sign - Last 24 Hours 04/26/19 04/26/19 04/26/19 04/26/19 15:51 19:00 20:00 23:00 Temp 98.0 98.2 98.0 98.0 98.2 98.0 Pulse 91 86 84 Resp 18 20 16 B/P (MAP) 102/49 (66) 121/50 (73) 141/73 (95) Pulse Ox 93 94 96 O2 Delivery Room Air Room Air Room Air Room Air 04/27/19 04/27/19 04/27/19 04/27/19 03:00 07:00 07:34 11:00 Temp 98.0 98.4 98.0 98.0 98.4 98.0 Pulse 80 95 108 Resp 16 18 16 B/P (MAP) 129/71 (90) 118/62 (80) 113/83 (93) Pulse Ox 96 98 O2 Delivery Room Air Room Air Room Air Room Air Intake and Output 04/26/19 04/26/19 04/27/19 15:00 23:00 07:00 Intake Total 980 ml 200 ml 0 ml Output Total 845 ml 700 ml 850 ml Balance 135 ml -500 ml -850 ml Nutrition Consultation Dietary Evaluation: Recommendations by RD: Protein supplementation Comments: REC continue w/regular diet, ground meats REC Ensure w/lunch trays Expected Outcomes/Goals: PO intake to meet >75% est needs - met, goal ongoing Malnutrition Findings: Weight Status: Appropriate MARY KATE DEGROOT MD Apr 27, 2019 15:33
[2019-04-27 19:09] VITALS: BP 123/97
[2019-04-27] MEDS: MIRTAZAPINE 7.5 MG TABLET. PO SCH (21:00)
[2019-04-27] MEDS: ATORVASTATIN CALCIUM 40 MG TABLET. PO SCH (21:00)
[2019-04-28 02:23] VITALS: BP 101/71
[2019-04-28 06:54] VITALS: BP 126/65
[2019-04-28] MEDS: DIVALPROEX SPRINKLES 125 MG CAPSULE. PO SCH ×2 (08:21→17:45)
[2019-04-28] MEDS: VITAMIN B12,B9,B6 COMPLEX 1 TABLET. PO SCH (08:23)
[2019-04-28] MEDS: LEVOTHYROXINE 75 MCG TABLET PO SCH (08:24)
[2019-04-28] MEDS: CHOLECALCIFEROL (VITAMIN D3) 1,000 UNIT TABLET PO SCH (08:25)
[2019-04-28] MEDS: MULTIVITAMIN with MINERAL TABLET. PO SCH (08:29)
[2019-04-28] MEDS: CALCIUM CARB/VIT D3 500/200 TABLET. PO SCH (08:29)
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
[2019-04-28] MEDS: HALOPERIDOL LACTATE 5 MG/ML VIAL. IVP PRN (10:10)
[2019-04-28 10:55] VITALS: BP 103/67
--- NOTE | 2019-04-28 10:59 | PDOC ---
PROGRESS NOTES Subjective Subjective alert, calm 1:1 nurse family at bedside denies pain Objective Objective Vital Signs Date Time Temp Pulse Resp B/P (MAP) Pulse Ox O2 Delivery O2 Flow Rate FiO2 04/28/19 08:00 Room Air 04/28/19 06:54 97.6 88 18 126/65 (85) 95 97.6 04/25/19 10:01 4.0 Intake and Output 04/28/19 07:00 Output Total 975 ml Balance -975 ml Output Urine Total 975 ml Physical Exam General: Alert, Cooperative, No acute distress MUSCULOSKELETAL: Other (MEJIA) Skin: Other (dressing C,D,I) Plan Plan of Care can dc to SNF from NS standpoint will need to follow up in 2 weeks for staple removal Comment Review of Relevant I have reviewed the following items cyndi (where applicable) has been applied. Labs Laboratory Tests Test 04/26/19 20:05 Clostridium difficile Toxin B Gene Negative (Negative) Medications Current Medications Aspirin (Children'S Aspirin) 81 mg DAILY PO Last administered on 04/23/19 09:25; Start 04/23/19 at 09:00; Stop 04/24/19 at 11:09; Status DC Divalproex Sodium (Depakote Sprinkles) 125 mg BIDWMEALS PO Last administered on 04/28/19 08:21; Start 04/22/19 at 17:30 Levothyroxine Sodium (Synthroid) 75 mcg DAILY PO Last administered on 04/28/19 08:24; Start 04/23/19 at 09:00 Mirtazapine (Remeron) 7.5 mg QHS PO Last administered on 04/25/19 20:57; Start 04/22/19 at 21:00 Olanzapine (ZyPREXA) 5 mg PRN Q2HR PRN PO ANXIETY / AGITATION Last administered on 04/25/19 10:29; Start 04/22/19 at 17:15 Calcium/Vitamin D (Oscal D 500mg/ 200uts) 1 tab DAILY PO Last administered on 04/26/19 09:16; Start 04/23/19 at 09:00 Vitamin D (Vitamin D3) 1,000 unit DAILY PO Last administered on 04/28/19 08:25; Start 04/23/19 at 09:00 Multivitamins (Thera M Plus) 1 tab DAILY PO Last administered on 04/26/19at 09:16; Start 04/23/19 at 09:00 Atorvastatin Calcium (Lipitor) 40 mg QHS PO Last administered on 04/25/19at 20:57; Start 04/22/19 at 21:00 Sodium Chloride 1,000 ml @ 50 mls/hr Q20H IV Last administered on 04/26/19at 05:26; Start 04/22/19 at 19:00; Stop 04/26/19 at 14:11; Status DC Vitamin B Complex (Folbic Tablet) 1 tab DAILY PO Last administered on 04/28/19at 08:23; Start 04/23/19 at 09:00 Levothyroxine Sodium (Synthroid) 75 mcg STK-MED ONCE .ROUTE ; Start 04/23/19 at 07:16; Stop 04/23/19 at 07:17; Status DC Dexamethasone Sodium Phosphate (Decadron) 2 mg Q6HRS IVP Last administered on 04/25/19at 11:42; Start 04/23/19 at 14:00; Stop 04/25/19 at 12:25; Status DC Cefazolin Sodium/ Dextrose 50 ml @ 100 mls/hr 1X PREOP IV Last administered on 04/24/19at 14:24; Start 04/24/19 at 11:00; Stop 04/24/19 at 18:00; Status DC Bacitracin 99985 unit/Sodium Chloride 1,000 ml @ 1,000 mls/hr 1X ONCE IRR Last administered on 04/24/19at 14:35; Start 04/24/19 at 06:00; Stop 04/24/19 at 06:59; Status DC Bupivacaine HCl/ Epinephrine Bitart (Sensorcain-Epi 0.5%-1:[id number] Mpf) 30 ml 1X ONCE INJ Last administered on 04/24/19at 14:35; Start 04/24/19 at 06:30; Stop 04/24/19 at 06:31; Status DC Ondansetron HCl (Zofran) 4 mg PRN Q6HRS PRN IV NAUSEA/VOMITING; Start 04/24/19 at 07:00; Stop 04/25/19 at 06:59; Status DC Fentanyl Citrate (Fentanyl 2ml Vial) 25 mcg PRN Q5MIN PRN IV MILD PAIN 1-3; Start 04/24/19 at 07:00; Stop 04/25/19 at 06:59; Status DC Fentanyl Citrate (Fentanyl 2ml Vial) 50 mcg PRN Q5MIN PRN IV MODERATE TO SEVERE PAIN; Start 04/24/19 at 07:00; Stop 04/25/19 at 06:59; Status DC Morphine Sulfate (Morphine Sulfate) 1 mg PRN Q10MIN PRN IV SEVERE PAIN 7-10; Start 04/24/19 at 07:00; Stop 04/25/19 at 06:59; Status DC Ringer's Solution 1,000 ml @ 30 mls/hr Q24H IV ; Start 04/24/19 at 07:00; Stop 04/24/19 at 18:59; Status DC Lidocaine HCl (Xylocaine-Mpf 1% 2ml Vial) 2 ml PRN 1X PRN ID PRIOR TO IV START; Start 04/24/19 at 07:00; Stop 04/25/19 at 06:59; Status DC Hydromorphone HCl (Dilaudid) 0.5 mg PRN Q10MIN PRN IV SEV PAIN, Second choice Last administered on 04/24/19at 17:34; Start 04/24/19 at 07:00; Stop 04/25/19 at 06:59; Status DC Prochlorperazine Edisylate (Compazine) 5 mg PACU PRN PRN IV NAUSEA, MRX1; Start 04/24/19 at 07:00; Stop 04/25/19 at 06:59; Status DC Gelatin (Gelfoam Size 100) 1 each STK-MED ONCE .ROUTE Last administered on 04/24/19at 14:35; Start 04/24/19 at 09:02; Stop 04/24/19 at 09:02; Status DC Cellulose (Surgicel Hemostat 4x8) 1 each STK-MED ONCE .ROUTE ; Start 04/24/19 at 09:02; Stop 04/24/19 at 09:02; Status DC Thrombin 20,000 unit STK-MED ONCE TP Last administered on 04/24/19at 14:35; Start 04/24/19 at 09:02; Stop 04/24/19 at 09:03; Status DC Mannitol (Mannitol) 12.5 g STK-MED ONCE .ROUTE ; Start 04/24/19 at 11:23; Stop 04/24/19 at 11:23; Status DC Sevoflurane (Ultane) 60 ml STK-MED ONCE IH ; Start 04/24/19 at 11:30; Stop 04/24/19 at 11:31; Status DC Fentanyl Citrate (Fentanyl 2ml Vial) 100 mcg STK-MED ONCE .ROUTE ; Start 04/24/19 at 11:31; Stop 04/24/19 at 11:31; Status DC Glycopyrrolate (Robinul) 1 mg STK-MED ONCE .ROUTE ; Start 04/24/19 at 11:31; Stop 04/24/19 at 11:32; Status DC Neostigmine Methylsulfate (Neostigmine Methylsulfate) 5 mg STK-MED ONCE .ROUTE ; Start 04/24/19 at 11:32; Stop 04/24/19 at 11:32; Status DC Rocuronium [place] (Zemuron) 50 mg STK-MED ONCE .ROUTE ; Start 04/24/19 at 11:32; Stop 04/24/19 at 11:32; Status DC Ondansetron HCl (Zofran) 4 mg STK-MED ONCE .ROUTE ; Start 04/24/19 at 11:32; Stop 04/24/19 at 11:32; Status DC Dexamethasone Sodium Phosphate (Decadron) 20 mg STK-MED ONCE .ROUTE ; Start 04/24/19 at 11:32; Stop 04/24/19 at 11:32; Status DC Propofol 20 ml @ As Directed STK-MED ONCE IV ; Start 04/24/19 at 11:32; Stop 04/24/19 at 11:32; Status DC Lidocaine HCl (Lidocaine Pf 2% Vial) 5 ml STK-MED ONCE .ROUTE ; Start 04/24/19 at 11:32; Stop 04/24/19 at 11:32; Status DC Bisacodyl (Dulcolax Supp) 10 mg 1X ONCE MD Last administered on 04/24/19at 17:34; Start 04/24/19 at 11:45; Stop 04/24/19 at 11:46; Status DC Phenylephrine HCl (PHENYLEPHRINE in 0.9% NACL PF) 1 mg STK-MED ONCE IV ; Start 04/24/19 at 13:50; Stop 04/24/19 at 13:51; Status DC Ephedrine Sulfate (ePHEDrine PF IN SALINE SYRINGE) 50 mg STK-MED ONCE IV ; Start 04/24/19 at 14:22; Stop 04/24/19 at 14:23; Status DC Fentanyl Citrate (Fentanyl 2ml Vial) 100 mcg STK-MED ONCE .ROUTE ; Start 04/24/19 at 14:33; Stop 04/24/19 at 14:34; Status DC Cefazolin Sodium 50 ml @ 100 mls/hr Q8HRS IV ; Start 04/24/19 at 22:00; Stop 04/25/19 at 15:00; Status Cancel Cefazolin Sodium (Ancef) 1 gm Q8HRS IVP Last administered on 04/25/19at 06:24; Start 04/24/19 at 22:00; Stop 04/25/19 at 15:24; Status DC Hydromorphone HCl (Dilaudid) 0.5 mg PRN Q4HRS PRN IV PAIN; Start 04/24/19 at 17:30 Bisacodyl (Dulcolax Supp) 10 mg STK-MED ONCE .ROUTE ; Start 04/24/19 at 17:32; Stop 04/24/19 at 17:32; Status DC Acetaminophen (Tylenol) 650 mg PRN Q6HRS PRN PO PAIN Last administered on 04/26/19at 05:43; Start 04/24/19 at 21:45 Potassium Chloride (Klor-Con) 20 meq 1X ONCE PO Last administered on 04/25/19at 07:57; Start 04/25/19 at 07:45; Stop 04/25/19 at 07:46; Status DC Haloperidol Lactate (Haldol Inj) 5 mg 1X ONCE IVP Last administered on 04/25/19at 12:34; Start 04/25/19 at 12:30; Stop 04/25/19 at 12:31; Status DC Haloperidol Lactate (Haldol Inj) 2.5 mg PRN Q4HRS PRN IVP AGITATION Last administered on 04/28/19at 10:10; Start 04/25/19 at 15:30 Nitroglycerin (Nitro-Bid Oint) 1 inch Q6HRS TP ; Start 04/25/19 at 18:00; Status Cancel Amino Acids/ Glycerin/ Electrolytes 1,000 ml @ 80 mls/hr [id number] IV ; Start 04/28/19 at 10:00 Active Scripts Active Reported Mirtazapine 7.5 Mg Tablet 1 Tab PO QHS 30 Days Divalproex Sodium 500 Mg Tablet.dr 125 Mg PO BIDWMEALS Olanzapine 5 Mg Tablet 1 Tab PO PRN Q2HR PRN Levothyroxine Sodium 75 Mcg Tablet 1 Tab PO DAILY Aspirin 81 Mg Tab.chew 1 Tab PO DAILY Rosuvastatin Calcium 10 Mg Tablet 10 Mg PO HS Vitamin D3 (Cholecalciferol (Vitamin D3)) 2,000 Unit Tablet 1 Tab PO DAILY 30 Days Citracal + D Er Tablet (Calcium Carb & Cit/Vitamin D3) 1 Each Tablet.er 1 Each PO DAILY Centrum Silver Women Tablet (Multivits-Min/Iron/FA/Lutein) 1 Each Tablet 1 Each PO DAILY Vitals/I & O Vital Sign - Last 24 Hours 04/27/19 04/27/19 04/27/19 04/27/19 11:00 15:00 19:09 19:37 Temp 98.0 98.3 96.4 98.0 98.3 96.4 Pulse 108 79 89 Resp 16 14 18 B/P (MAP) 113/83 (93) 110/70 (83) 123/97 (106) Pulse Ox 98 94 O2 Delivery Room Air Room Air Room Air Room Air 04/27/19 04/28/19 04/28/19 04/28/19 23:00 02:23 06:54 08:00 Temp 98.0 97.6 98.0 97.6 Pulse 90 88 Resp 16 18 B/P (MAP) 101/71 (81) 126/65 (85) Pulse Ox 93 95 O2 Delivery Room Air Room Air Room Air Room Air Intake and Output 04/27/19 04/27/19 04/28/19 15:00 23:00 07:00 Output Total 650 ml 325 ml Balance -650 ml -325 ml Nutrition Consultation Dietary Evaluation: Recommendations by RD: Protein supplementation Comments: REC continue w/regular diet, ground meats REC Ensure w/lunch trays Expected Outcomes/Goals: PO intake to meet >75% est needs - met, goal ongoing Malnutrition Findings: Weight Status: Appropriate TASHI COUCH APRN Apr 28, 2019 10:59
[2019-04-28] MEDS: AMINO AC 3%/ELECTROLYTE/GLYCER 1,000 ML IV SCH ×2 (12:37→23:50)
[2019-04-28 14:57] VITALS: BP 120/70
[2019-04-28] MEDS ORDERED: OLANZapine IM 10 MG VIAL. IM SCH (17:00)
[2019-04-28] MEDS: OLANZapine 5 MG TABLET PO PRN ×2 (17:45→20:38)
[2019-04-28] MEDS ORDERED: OLANZapine IM 10 MG VIAL. IM PRN (17:45)
[2019-04-28 19:00] VITALS: BP 114/74
[2019-04-28] MEDS: ATORVASTATIN CALCIUM 40 MG TABLET. PO SCH (20:38)
[2019-04-28] MEDS: MIRTAZAPINE 7.5 MG TABLET. PO SCH (20:38)
[2019-04-28 23:00] VITALS: BP 100/77
[2019-04-29] MEDS: OLANZapine 5 MG TABLET PO PRN ×3 (00:25→21:35)
[2019-04-29 03:00] VITALS: BP 109/85
[2019-04-29 07:00] VITALS: BP 123/82
[2019-04-29] MEDS ORDERED: HYDR-2815 PO (08:02)
--- NOTE | 2019-04-29 08:02 | SNU/HH DC ---
DISCHARGE ORDERS DISCHARGE INFORMATION: DISCHARGE DATE: Apr 29, 2019 CONDITION ON DISCHARGE: Stable CODE STATUS: Code Status: DNR/DNI HALF-WAY: SNF STAY <30 DAYS: Yes HOSPICE: HOSPICE: No HOSPICE EVAL & TREAT: No LTAC: ADMIT TO LTAC: No POST DISCHARGE ORDERS: ACTIVITY ORDERS: Avoid exertion DIET AFTER DISCHARGE: Regular WOUND/INCISION CARE: Change dressing CHECKS AFTER DISCHARGE: CHECKS AFTER DISCHARGE: Check blood press - daily, Check blood sugar, ac/hs FOLLOW-UP: PHYSICIAN FOLLOW-UP: ff up [address] Gaspar for staple removal TREATMENT/EQUIPMENT ORDERS: Physical Therapy For: Evalulation/Treatment Occupational Therapy For: Evaluation/Treatment DISCHARGE MEDICATIONS: Home Meds Active Scripts Hydrocodone/Acetaminophen (Lorcet 5-325 mg Tablet) 1 Each Tablet, 1 TAB PO PRN TID PRN for pain MDD 3 Tablet(s) for 10 Days, #30 TAB 0 Refills Prov:SUSY ANG MD 04/29/19 Reported Medications Mirtazapine (MIRTAZAPINE) 7.5 Mg Tablet, 1 TAB PO QHS for sleep for 30 Days, #30 TAB 0 Refills 04/22/19 Divalproex Sodium (DIVALPROEX SODIUM) 500 Mg Tablet.dr, 125 MG PO BIDWMEALS for psychiatric, TAB 04/22/19 Olanzapine (OLANZAPINE) 5 Mg Tablet, 1 TAB PO PRN Q2HR PRN for ANXIETY / AGITATION, #30 TAB 2 Refills 04/22/19 Levothyroxine Sodium (LEVOTHYROXINE SODIUM) 75 Mcg Tablet, 1 TAB PO DAILY for hypothyroid, #30 TAB 5 Refills 04/22/19 Rosuvastatin Calcium (Rosuvastatin Calcium) 10 Mg Tablet, 10 MG PO HS for hyperlipidemia, TAB 04/22/19 Cholecalciferol (Vitamin D3) (VITAMIN D3) 2,000 Unit Tablet, 1 TAB PO DAILY for vitamin for 30 Days, #30 TAB 0 Refills 04/22/19 Calcium Carb & Cit/Vitamin D3 (CITRACAL + D ER TABLET) 1 Each Tablet.er, 1 EACH PO DAILY, TAB.SR 01/31/18 Multivits-Min/Iron/FA/Lutein (Centrum Silver Women Tablet) 1 Each Tablet, 1 EACH PO DAILY, TAB 01/31/18 Discontinued Reported Medications Aspirin (ASPIRIN) 81 Mg Tab.chew, 1 TAB PO DAILY for heart, #30 TAB 3 Refills 04/22/19 Memantine HCl/Donepezil HCl (Namzaric 28 mg-10 mg Capsule) 1 Each Cap.spr.24, 1 EACH PO HS, CAP 01/31/18 Rosuvastatin Calcium (CRESTOR) 40 Mg Tablet, 40 MG PO DAILY for FOR CHOLESTEROL, #30 TAB 0 Refills 01/31/18 SUSY ANG MD Apr 29, 2019 08:02
[2019-04-29] MEDS: CHOLECALCIFEROL (VITAMIN D3) 1,000 UNIT TABLET PO SCH (08:40)
[2019-04-29] MEDS: DIVALPROEX SPRINKLES 125 MG CAPSULE. PO SCH ×2 (08:40→16:25)
[2019-04-29] MEDS: VITAMIN B12,B9,B6 COMPLEX 1 TABLET. PO SCH (08:40)
[2019-04-29] MEDS: LEVOTHYROXINE 75 MCG TABLET PO SCH (08:40)
[2019-04-29] MEDS: MULTIVITAMIN with MINERAL TABLET. PO SCH (08:40)
[2019-04-29] MEDS: CALCIUM CARB/VIT D3 500/200 TABLET. PO SCH (08:40)
--- NOTE | 2019-04-29 09:25 | PDOC3 ---
Discharge Summary Visit Information Date of Admission: Apr 22, 2019 Date of Discharge: Apr 29, 2019 Admitting Diagnosis Comment: acute SDH on left 2.4cm with 4mm right midline shift now s/p surg, Neurosurg following s/p evacuation 04/24 dementia with behavioral disorder, GEn weakness, SNU DNR Brief Hospital Course Allergies Allergies Coded Allergies Type Severity Reaction Last Updated Verified Sulfa (Sulfonamide Antibiotics) Allergy Intermediate 04/28/19 Yes Vital Signs Vital Signs Date Time Temp Pulse Resp B/P (MAP) Pulse Ox O2 Delivery O2 Flow Rate FiO2 04/29/19 07:00 98.2 87 14 123/82 (96) 93 Room Air 98.2 Brief Hospital Course Ms. Bob is a 68 old [white female who came in for SDH and needed NS evacn on apr 2019, POst op, very weak, NEEDS aide to feed her, SNU slated, DNR< might be interested in other options.. hospice? BUt cleared from NS to dc to SNU, ff up 2 weeks for removal clayton - can be done with or without hospice DNR form signed and on chart Discharge Information Condition at Discharge: Improved, Stable Disposition/Orders: Other (SNU) Scheduled Calcium Carb & Cit/Vitamin D3 (Citracal + D Er Tablet) 1 Each Tablet.er, 1 EACH PO DAILY, (Reported) Entered as Reported by: SEAN MAXWELL on 01/31/18 1508 Last Action: Converted on 04/22/191707 by SOWMYA MANNING Cholecalciferol (Vitamin D3) (Vitamin D3) 2,000 Unit Tablet, 1 TAB PO DAILY for vitamin for 30 Days, #30 Ref 0 (Reported) Entered as Reported by: SOWMYA MANNING on 04/22/191648 Last Taken: Unknown Dose on 04/21/19 Last Action: Converted on 04/22/191707 by SOWMYA MANNING Divalproex Sodium (Divalproex Sodium) 500 Mg Tablet.dr, 125 MG PO BIDWMEALS for psychiatric, (Reported) Entered as Reported by: SOWMYA MANNING on 04/22/191648 Last Taken: Unknown Dose on 04/22/19 0900 Last Action: Continued on 04/22/191708 by SOWMYA MANNING Levothyroxine Sodium (Levothyroxine Sodium) 75 Mcg Tablet, 1 TAB PO DAILY for hypothyroid, #30 Ref 5 (Reported) Entered as Reported by: SOWMYA MANNING on 04/22/191648 Last Taken: Unknown Dose on 04/22/19 Last Action: Continued on 04/22/191708 by SOWMYA MANNING Mirtazapine (Mirtazapine) 7.5 Mg Tablet, 1 TAB PO QHS for sleep for 30 Days, #30 Ref 0 (Reported) Entered as Reported by: SOWMYA MANNING on 04/22/191648 Last Taken: Unknown Dose on 04/21/19 Last Action: Continued on 04/22/191708 by SOWMYA MANNING Multivits-Min/Iron/FA/Lutein (Centrum Silver Women Tablet) 1 Each Tablet, 1 EACH PO DAILY, (Reported) Entered as Reported by: SEAN MAXWELL on 01/31/18 1504 Last Action: Converted on 04/22/191707 by SOWMYA MANNING Rosuvastatin Calcium (Rosuvastatin Calcium) 10 Mg Tablet, 10 MG PO HS for hyperlipidemia, (Reported) Entered as Reported by: SOWMYA MANNING on 04/22/191648 Last Taken: Unknown Dose on 04/21/19 Last Action: Converted on 04/22/191707 by SOWMYA MANNING Scheduled PRN Hydrocodone/Acetaminophen (Lorcet 5-325 mg Tablet) 1 Each Tablet, 1 TAB PO PRN TID PRN for pain MDD 3 Tablet(s) for 10 Days, #30 Ref 0 Prescribed by: SUSY ANG on 04/29/19 0802 Olanzapine (Olanzapine) 5 Mg Tablet, 1 TAB PO PRN Q2HR PRN for ANXIETY / AGITATION, #30 Ref 2 (Reported) Entered as Reported by: SOWMYA MANNING on 04/22/191648 Last Taken: Unknown Dose on 04/22/19 Last Action: Continued on 04/22/191708 by SOWMYA MANNING Discontinued Medications Aspirin (Aspirin) 81 Mg Tab.chew, 1 TAB PO DAILY for heart, #30 Ref 3 (Reported) Entered as Reported by: SOWMYA MANNING on 04/22/191648 Last Taken: Unknown Dose on 04/21/19 Last Action: Continued on 04/22/191708 by SOWMYA MANNING Memantine HCl/Donepezil HCl (Namzaric 28 mg-10 mg Capsule) 1 Each Cap.spr.24, 1 EACH PO HS, (Reported) Entered as Reported by: SEAN MAXWELL on 01/31/18 1505 Last Action: Discontinued on 04/22/191707 by SOWMYA MANNING Rosuvastatin Calcium (Crestor) 40 Mg Tablet, 40 MG PO DAILY for FOR CHOLESTEROL, #30 Ref 0 (Reported) Entered as Reported by: SEAN MAXWELL on 01/31/18 1503 Last Action: Discontinued on 04/22/191707 by SUSY BECK MD Apr 29, 2019 09:25
--- NOTE | 2019-04-29 10:54 | NUR ---
NATANAEL following for discharge planning. Chart reviewed, discussed with RN. Pt is from home with . SW received voicemail this morning stating someone from manager social work was supposed to meet with him when pt was in the ICU last week, and he did not hear from anyone in [employer] social [employer]. NATANAEL apologized, and discussed PT/OT recommendation of SNU. Pt's is agreeable and has [facility] (ph: [phone], fax: [phone]). NATANAEL faxed referral to [facility], pt has not had 1:1 since yesterday. Pt had been at [facility] about 2 weeks ago. SW awaiting acceptance decision. plans for SNU to LTC, as his has deteriorated. ARLIN notified. Addendum: 04/29/19 at 1620 by MARI SANTOYO Referral was faxed twice to [facility] and line was busy and second time not received. [facility] contacted NATANAEL at 1450 to advise as pt's had contacted the facility Referral was faxed for a third time at 1450. [facility] declined to accept pt due to behaviors. NATANAEL met with pt's daughters to advise of denial. They would like a list of facilities with memory care units to give to their dad tonight to pick another facility. NATANAEL provided list of facilities. NATANAEL meeting with pt's 04/30/19 around 1030 to discuss facility. RN notified.
[2019-04-29] MEDS: AMINO AC 3%/ELECTROLYTE/GLYCER 1,000 ML IV SCH (10:57)
[2019-04-29 11:00] VITALS: BP 108/64
[2019-04-29 19:00] VITALS: BP 126/67
[2019-04-29] MEDS: ATORVASTATIN CALCIUM 40 MG TABLET. PO SCH (21:35)
[2019-04-29] MEDS: MIRTAZAPINE 7.5 MG TABLET. PO SCH (21:35)
[2019-04-29 23:00] VITALS: BP_SYST 110; BP_SYST 113; BP_DIAS 60; BP_DIAS 76
[2019-04-30] MEDS: AMINO AC 3%/ELECTROLYTE/GLYCER 1,000 ML IV SCH ×2 (00:41→13:20)
[2019-04-30] MEDS: OLANZapine 5 MG TABLET PO PRN (02:36)
[2019-04-30 02:43] VITALS: BP 110/68
[2019-04-30 07:00] VITALS: BP 124/72
[2019-04-30] MEDS: VITAMIN B12,B9,B6 COMPLEX 1 TABLET. PO SCH (08:17)
[2019-04-30] MEDS: DIVALPROEX SPRINKLES 125 MG CAPSULE. PO SCH ×2 (08:17→16:53)
[2019-04-30] MEDS: MULTIVITAMIN with MINERAL TABLET. PO SCH (08:17)
[2019-04-30] MEDS: CALCIUM CARB/VIT D3 500/200 TABLET. PO SCH (08:17)
[2019-04-30] MEDS: LEVOTHYROXINE 75 MCG TABLET PO SCH (08:17)
[2019-04-30] MEDS: CHOLECALCIFEROL (VITAMIN D3) 1,000 UNIT TABLET PO SCH (08:17)
[2019-04-30 10:13] LABS: BASO # 0.1 x10^3/uL (0.0-0.2); BASO % 1 % (0-3); EOS # 0.2 x10^3/uL (0.0-0.7); EOS % 2 % (0-3); HEMATOCRIT 44.2 % (36.0-47.0); LYMPH # 3.6 x10^3/uL (1.0-4.8); LYMPH % 29 % (24-48); MEAN CORPUSCULAR HEMOGLOBIN 30 pg (25-35); MEAN CORPUSCULAR HGB CONC 34 g/dL (31-37); MEAN CORPUSCULAR VOLUME 90 fL (79-100); MONO # 0.9 x10^3/uL (0.0-1.1); MONO % 8 % (0-9); NEUT # 7.5 x10^3/uL (1.8-7.7); NEUT % 61 % (31-73); PLATELET COUNT 268 x10^3/uL (140-400); RED BLOOD COUNT 4.94 x10^6/uL (3.50-5.40); RED CELL DISTRIBUTION WIDTH 14.5 % (11.5-14.5); WHITE BLOOD COUNT 12.3 x10^3/uL (4.0-11.0)
[2019-04-30 10:32] LABS: CALCIUM 9.1 mg/dL (8.5-10.1); CREATININE 0.8 mg/dL (0.6-1.0); GFR 71.5
--- NOTE | 2019-04-30 10:38 | PDOC ---
Provider Note Provider Note NO acute issues overnight NEeds SNU and waiting on insurance auth or acceptance- SW working on it NO addendum to dc summ done yesterday MAintain welch on dc DNR Rcheck CBC ,.bmp , has been a while with leukocytosis the last time (WBC 22) SUSY ANG MD Apr 30, 2019 10:38
[2019-04-30 11:06] VITALS: BP 124/82
--- NOTE | 2019-04-30 11:19 | NUR ---
NATANAEL met with pt's . He would like referral sent to [facility] in [place] (ph: [phone], fax: [phone]). NATANAEL phoned and faxed referral to [facility]. Awaiting acceptance decision. [facility] reported they will not take pt without a completed care assessment. NATANAEL will continue to follow. Addendum: 04/30/19 at 1631 by MARI SANTOYO Someone from [facility] is coming out to meet with pt and possibly pt's this evening around 1800. Care assessment being completed by Jaswinder SANTOYO director. RN notified.
--- NOTE | 2019-04-30 14:54 | OP ---
DATE OF SURGERY: 04/24/2019 PREOPERATIVE DIAGNOSIS: Left parietal subdural hematoma. POSTOPERATIVE DIAGNOSIS: Left parietal subdural hematoma. OPERATION PERFORMED: Left parietal craniotomy with evacuation of subdural hematoma. SURGEON: Alban Degroot M.D. SHANK RANDER: Nancy Collazo, assisted with the surgery. She assisted with all aspects of the surgery. OPERATIVE INDICATIONS: The patient is a pleasant 68-year-old woman who developed problems with mentation. She previously had been diagnosed with Alzheimer disease. She had worsening of her mental status. CT scan of the head was performed and a large left parietal subdural hematoma was seen of mixed density and she was placed in intensive care unit for observation. On followup scan, there was enlargement of the subdural and I recommended a craniotomy. I spoke with the family about the risks and benefits of surgery, they wished for me to go ahead. DESCRIPTION OF PROCEDURE: Following general endotracheal anesthesia, the patient was positioned supine with a roll beneath her shoulder and her head was turned to the right in Tate pins. The [employer] system was initialized and I made a paramedian incision directly over the subdural. I reflected the skin and subcutaneous tissue after using Clementina clips along the skin edges. I did open the periosteum sharply and reflected the periosteum with periosteal elevator and placed self-retaining clamps. I brought in the Midas with a conical bur and placed a vanessa hole and then used the foot plate to develop a bone flap, which was removed from the field. I opened the dura in a cruciate fashion. There was a large subdural present of mixed density and I sucked much of this away and irrigated copiously and then I placed a drain into the subdural space, bringing this out through a separate stab incision. I did shave the bone further to be sure that a drain would not be caught by the plate and I replaced the bone flap and secured this with microplates. I irrigated copiously and closed the wound in layers with absorbable suture and skin was closed with skin clayton. The operation went very well. ALBAN DEGROOT MD DR: CHRISTOPH/jed JOB#: [id number] / [id number] FANTASMA
[2019-04-30 15:13] VITALS: BP 129/73
[2019-04-30 19:25] VITALS: BP 99/67
[2019-04-30] MEDS: MIRTAZAPINE 7.5 MG TABLET. PO SCH (21:25)
[2019-04-30] MEDS: ATORVASTATIN CALCIUM 40 MG TABLET. PO SCH (21:25)
[2019-04-30 23:53] VITALS: BP 127/81
[2019-05-01] MEDS: AMINO AC 3%/ELECTROLYTE/GLYCER 1,000 ML IV SCH ×2 (00:40→13:00)
[2019-05-01 03:33] VITALS: BP 118/71
[2019-05-01 07:00] VITALS: BP 98/56
[2019-05-01] MEDS: CALCIUM CARB/VIT D3 500/200 TABLET. PO SCH (08:10)
[2019-05-01] MEDS: VITAMIN B12,B9,B6 COMPLEX 1 TABLET. PO SCH (08:10)
[2019-05-01] MEDS: LEVOTHYROXINE 75 MCG TABLET PO SCH (08:11)
[2019-05-01] MEDS: DIVALPROEX SPRINKLES 125 MG CAPSULE. PO SCH ×2 (08:11→17:53)
[2019-05-01] MEDS: MULTIVITAMIN with MINERAL TABLET. PO SCH (08:11)
[2019-05-01] MEDS: CHOLECALCIFEROL (VITAMIN D3) 1,000 UNIT TABLET PO SCH (08:11)
--- NOTE | 2019-05-01 08:43 | PDOC ---
Provider Note Provider Note ABOut the same, needs aide to feed TEchincially hospice candidate NS plans to take out clayton in 2 weeks COuntry CAre dc dispo by SW in the works DNR Dc summ done, no medical addendum needed PT seen and examined, minimally cooperative SUSY ANG MD May 01, 2019 08:43
--- NOTE | 2019-05-01 13:13 | NUR ---
SW following. Pt accepted at [facility], DNR and Care assessment completed. [facility] will transport pt at 1500. RN, [facility] and family notified. Addendum: 05/01/19 at 1340 by MARI SANTOYO [facility] advised they cannot take pt after 1430 today. Discharge cancelled, plan to discharge tomorrow morning (05/02/19). RN notified.
[2019-05-01 15:00] VITALS: BP 104/77
[2019-05-01 19:00] VITALS: BP 116/70
[2019-05-01] MEDS: ATORVASTATIN CALCIUM 40 MG TABLET. PO SCH (20:33)
[2019-05-01] MEDS: MIRTAZAPINE 7.5 MG TABLET. PO SCH (20:33)
[2019-05-01 23:00] VITALS: BP 113/63
[2019-05-02 03:00] VITALS: BP 115/58
[2019-05-02 07:00] VITALS: BP 116/63
[2019-05-02] MEDS: MULTIVITAMIN with MINERAL TABLET. PO SCH (08:56)
[2019-05-02] MEDS: DIVALPROEX SPRINKLES 125 MG CAPSULE. PO SCH (08:56)
[2019-05-02] MEDS: CHOLECALCIFEROL (VITAMIN D3) 1,000 UNIT TABLET PO SCH (08:56)
[2019-05-02] MEDS: VITAMIN B12,B9,B6 COMPLEX 1 TABLET. PO SCH (08:56)
[2019-05-02] MEDS: LEVOTHYROXINE 75 MCG TABLET PO SCH (08:56)
[2019-05-02] MEDS: CALCIUM CARB/VIT D3 500/200 TABLET. PO SCH (08:56)
--- NOTE | 2019-05-02 08:58 | NUR ---
SW following. Pt discharging to [facility] today at 10am via [facility]. RN and family notified. No further SW needs.
--- NOTE | 2019-05-02 10:45 | NUR ---
Discharge Note: NIGEL DOEV MIDKIFF Discharge instructions and discharge report given to Nurse Ina at [facility] Discontinued IV lines, Redd keeped in place. All belongings taken with patient. Pt stable, head clayton intact, and left with EMS.
== END 2019-05-02 10:30 | DRG 26 ==
LOC: 1 WEST ICU 15:28 → 4 NORTH 04-26 15:44
PROVIDERS: ADMIT Internal Medicine; ATTEND Internal Medicine
PROC: 00C40ZZ Extirpation of Matter from Intracranial Subdural Space, Open Approach (ICD-10-PCS; principal; 2019-04-24 12:30)
DX: S06.5X0A Traumatic subdural hemorrhage without loss of consciousness, initial encounter (principal); F02.81 Dementia in other diseases classified elsewhere, unspecified severity, with behavioral disturbance; E46 Unspecified protein-calorie malnutrition; G93.49 Other encephalopathy; Z66 Do not resuscitate; G30.9 Alzheimer's disease, unspecified; E78.5 Hyperlipidemia, unspecified; E03.9 Hypothyroidism, unspecified; F41.9 Anxiety disorder, unspecified; Z68.23 Body mass index [BMI] 23.0-23.9, adult; W18.30XA Fall on same level, unspecified, initial encounter; Y93.89 Activity, other specified; Y92.89 Other specified places as the place of occurrence of the external cause; Y99.8 Other external cause status; Z87.891 Personal history of nicotine dependence; Z88.2 Allergy status to sulfonamides; Z87.440 Personal history of urinary (tract) infections; Z91.81 History of falling; Z79.899 Other long term (current) drug therapy; Z79.82 Long term (current) use of aspirin
CPT/HCPCS: 36415; 70450; 74018; 80048; 85025; 85027; 87493; 88304; A7015; C1713; J0171; J0690; J0696; J1100; J1170; J1630; J2001; J2150; J2370; J2405; J2704; J2710; J3010; J3490; J7030; J7120; 97530; G0378